=== PATIENT | male | born 1945 | race Caucasian/White ===

== ENCOUNTER 2018-02-26 13:54 | Inpatient (IN) | payer OTHER | END 2018-03-01 14:13 | disposition home or self-care (01) | LOC: EDH 13:54 → EDHIP 18:45 → 4CH 21:21 | DX: I50.43 Acute on chronic combined systolic (congestive) and diastolic (congestive) heart failure (principal); E11.9 Type 2 diabetes mellitus without complications; I11.0 Hypertensive heart disease with heart failure; E78.5 Hyperlipidemia, unspecified; I25.5 Ischemic cardiomyopathy; I25.10 Atherosclerotic heart disease of native coronary artery without angina pectoris ==

== ENCOUNTER → 2018-04-04 | Outpatient (CLI) | payer OTHER ==
[~2018-04-04] MED LIST: APIX5TAB PO; ASPI-1181 PO; CARV12.580 PO; FINA5TAB41 PO; FURO80TA87 PO; METF-446 PO; OMEP20CA10 PO; SILO8CAP6 PO; SIMV40TA59 PO
== END | disposition home or self-care (01) ==
LOC: SHCH 12:58
PROVIDERS: ATTEND Internal Medicine Cardiovascular Disease
DX: I34.0 Nonrheumatic mitral (valve) insufficiency (principal); I25.5 Ischemic cardiomyopathy; Z95.1 Presence of aortocoronary bypass graft
CPT/HCPCS: 93306

== ENCOUNTER 2018-11-28 11:50 | Inpatient (IN) | payer OTHER ==
[~2018-11-28] VITALS: Ht 182.9 cm; Wt 116.7 kg
[~2018-11-28 11:50] MED LIST changes: +OMEP-50 PO; -OMEP20CA10 PO
[2018-11-28 12:07] LABS: BASOPHILS % (AUTO) 0.7 % (0.0-5.0); HEMATOCRIT 43.7 % (42-54); LYMPHOCYTES % (AUTO) 4.9 % (21.0-51.0); MEAN CORPUSCULAR HEMOGLOBIN 35.7 pg (27.0-33.0); MEAN CORPUSCULAR HGB CONC 34.4 g/dL (32.0-36.0); MEAN CORPUSCULAR VOLUME 103.8 fL (79-99); MONOCYTES % (AUTO) 4.5 % (3.0-13.0); NEUTROPHILS % (AUTO) 87.9 % (40.0-77.0); PLATELET COUNT (AUTO) 282 K/uL (130-400); RED BLOOD CELL COUNT(AUTO) 4.21 MIL/uL (4.50-6.20); RED CELL DISTRIBUTION WIDTH 13.8 % (11.0-15.5); WHITE BLOOD COUNT (AUTO) 10.8 K/uL (4.8-10.8)
[2018-11-28 12:12] LABS: CREATININE 1.1 mg/dL (0.5-1.5); POTASSIUM 4.6 mmol/L (3.5-5.1)
[2018-11-28 12:15] LABS: ALBUMIN 3.5 g/dL (3.5-5.0); BILIRUBIN,TOTAL 1.2 mg/dL (0.2-1.0); TOTAL PROTEIN, SERUM 7.1 g/dL (6.0-8.3)
[2018-11-28 12:17] LABS: INR 1.01 (0.85-1.15); PARTIAL THROMBOPLASTIN TIME 26.9 SEC (26.3-35.5); PROTHROMBIN TIME 10.6 SEC (9.6-11.6)
[2018-11-28] MEDS ORDERED: METOPROLOL TARTRATE 1 MG/ML 5ML VIAL IV ONE ×3 (12:41→15:36)
[2018-11-28] MEDS ORDERED: INSULIN HUMULIN R 100 UNIT/ML 3ML ONE ×2 (12:41→18:54)
[2018-11-28 13:06] LABS: B-TYPE NATRIURETIC PEPTIDE 182 pg/mL (0-100)
[2018-11-28] MEDS ORDERED: IOHEXOL-350 75 ML VIAL IV ONE (14:15)
[2018-11-28] MEDS ORDERED: DILTIAZEM HCL 125 MG/25 ML VIAL IV ONE (16:16)
[2018-11-28] MEDS ORDERED: SODIUM CHLORIDE 0.9% 100 ML IV ONE (16:18)
[2018-11-28] MEDS ORDERED: DILTIAZEM HCL 5 MG/ML 5 ML VIAL IVP ONE (16:18)
[2018-11-28 20:01] VITALS: BP 139/67
[2018-11-28] MEDS: FAMOTIDINE/PF 20 MG/2 ML VIAL IV SCH (21:14)
[2018-11-28 23:34] VITALS: BP 114/63
[2018-11-29 03:16] VITALS: BP 145/75
[2018-11-29 03:53] LABS: BASOPHILS % (AUTO) 1.5 % (0.0-5.0); EOSINOPHILS % (AUTO) 1.5 % (0.0-8.0); HEMATOCRIT 39.1 % (42-54); LYMPHOCYTES % (AUTO) 10.5 % (21.0-51.0); MEAN CORPUSCULAR HEMOGLOBIN 35.4 pg (27.0-33.0); MEAN CORPUSCULAR HGB CONC 34.6 g/dL (32.0-36.0); MEAN CORPUSCULAR VOLUME 102.5 fL (79-99); MONOCYTES % (AUTO) 8.8 % (3.0-13.0); NEUTROPHILS % (AUTO) 77.7 % (40.0-77.0); PLATELET COUNT (AUTO) 251 K/uL (130-400); RED BLOOD CELL COUNT(AUTO) 3.82 MIL/uL (4.50-6.20); RED CELL DISTRIBUTION WIDTH 13.6 % (11.0-15.5); WHITE BLOOD COUNT (AUTO) 7.2 K/uL (4.8-10.8)
[2018-11-29] MEDS: DILTIAZEM HCL 60 MG TABLET PO SCH ×2 (05:41→09:24)
[2018-11-29 07:25] VITALS: BP 124/60
[2018-11-29] MEDS ORDERED: FUROSEMIDE 80 MG TABLET PO SCH (09:00)
[2018-11-29] MEDS ORDERED: ENOXAPARIN SODIUM 30 MG/0.3 ML SQ SCH (09:00)
[2018-11-29] MEDS ORDERED: LEVOFLOXACIN 500 MG/D5W 100 ML 100 ML IV SCH (09:00)
[2018-11-29] MEDS: FAMOTIDINE/PF 20 MG/2 ML VIAL IV SCH ×2 (09:24→20:39)
[2018-11-29] MEDS: SILODOSIN 8 MG PO SCH (10:49)
[2018-11-29] MEDS: APIXABAN 5 MG TABLET PO SCH ×2 (11:02→20:40)
[2018-11-29] MEDS: FINASTERIDE 5 MG TABLET PO SCH (11:02)
[2018-11-29] MEDS: METFORMIN HCL 500 MG TABLET PO SCH ×2 (11:02→19:34)
[2018-11-29] MEDS: ASPIRIN 81 MG EC TAB PO SCH (11:03)
[2018-11-29] MEDS: LISINOPRIL 5 MG TABLET PO SCH (11:03)
[2018-11-29] MEDS: PANTOPRAZOLE SODIUM 40 MG TABLET.DR PO SCH (11:04)
[2018-11-29 11:10] VITALS: BP 128/67
[2018-11-29] MEDS ORDERED: METRONIDAZOLE 500MG/100ML BAG 100 ML IV SCH (14:00)
[2018-11-29 15:07] VITALS: BP 150/69
[2018-11-29] MEDS: METRONIDAZOLE 500 MG TABLET PO SCH ×2 (15:20→20:39)
[2018-11-29] MEDS: DILTIAZEM HCL 125 MG/25 ML 125 MG in SODIUM CHLORIDE 0.9% 100 ML IV SCH (16:54)
--- NOTE | 2018-11-29 17:21 | NUR ---
DC PLAN PATIENT STATES HE IS INDEPENDENT, LIVES ALONE, NO PROVIDER, HAS WALKER AND CPAP. PER PATIENT, FEELS SAFE TO RETURN HOME. Addendum: 11/29/18 at 1722 by MIRELLA REIS Amended: Links added.
[2018-11-29] MEDS: CARVEDILOL 12.5 MG TABLET PO SCH (19:33)
[2018-11-29 20:02] VITALS: BP 133/71
[2018-11-29] MEDS ORDERED: SIMVASTATIN 20 MG TABLET PO SCH (21:00)
[2018-11-30 00:14] VITALS: BP 114/66
[2018-11-30 04:20] VITALS: BP 124/69
[2018-11-30 05:32] LABS: HEMATOCRIT 39.2 % (42-54); MEAN CORPUSCULAR HEMOGLOBIN 35.4 pg (27.0-33.0); MEAN CORPUSCULAR HGB CONC 34.1 g/dL (32.0-36.0); MEAN CORPUSCULAR VOLUME 103.7 fL (79-99); PLATELET COUNT (AUTO) 236 K/uL (130-400); RED BLOOD CELL COUNT(AUTO) 3.78 MIL/uL (4.50-6.20); RED CELL DISTRIBUTION WIDTH 13.7 % (11.0-15.5); WHITE BLOOD COUNT (AUTO) 5.9 K/uL (4.8-10.8)
[2018-11-30 05:43] LABS: HEMOGLOBIN A1C 8.9 % (4.0-6.0)
[2018-11-30 05:47] LABS: CREATININE 1.1 mg/dL (0.5-1.5); MAGNESIUM 1.5 mg/dL (1.80-2.40); PHOSPHORUS 2.8 mg/dL (2.5-4.9); POTASSIUM 3.9 mmol/L (3.5-5.1)
[2018-11-30 05:55] LABS: B-TYPE NATRIURETIC PEPTIDE 215 pg/mL (0-100)
[2018-11-30] MEDS: METRONIDAZOLE 500 MG TABLET PO SCH (06:13)
[2018-11-30] MEDS: PANTOPRAZOLE SODIUM 40 MG TABLET.DR PO SCH (06:13)
[2018-11-30] MEDS ORDERED: MAGNESIUM 2GM PREMIX 50ML 50 ML IV ONE (06:45)
[2018-11-30] MEDS: DILTIAZEM HCL 125 MG/25 ML 125 MG in SODIUM CHLORIDE 0.9% 100 ML IV SCH (07:47)
[2018-11-30] MEDS: CARVEDILOL 12.5 MG TABLET PO SCH (07:49)
[2018-11-30] MEDS: FINASTERIDE 5 MG TABLET PO SCH (07:49)
[2018-11-30] MEDS: ASPIRIN 81 MG EC TAB PO SCH (07:49)
[2018-11-30] MEDS: METFORMIN HCL 500 MG TABLET PO SCH (07:49)
[2018-11-30] MEDS: APIXABAN 5 MG TABLET PO SCH (07:49)
[2018-11-30] MEDS: LISINOPRIL 5 MG TABLET PO SCH (07:49)
[2018-11-30] MEDS: SILODOSIN 8 MG PO SCH (07:51)
[2018-11-30] MEDS: FAMOTIDINE/PF 20 MG/2 ML VIAL IV SCH (07:52)
--- NOTE | 2018-11-30 08:00 | NUR ---
ASSESSMENT PT IS AAOX3 DENIES CP DENIES SOB DENIES NV NO COMPLAINTS RESTING IN BED. AM MEDS GIVEN. CALL LIGHT WITHIN REACH.
[2018-11-30 08:03] VITALS: BP 145/83
[2018-11-30] MEDS ORDERED: LEVOFLOXACIN 500 MG TABLET PO SCH (09:00)
[2018-11-30] MEDS ORDERED: FUROSEMIDE 40 MG TABLET PO SCH (09:00)
[2018-11-30 11:43] VITALS: BP_SYST 122; BP_SYST 130; BP_DIAS 55; BP_DIAS 66
--- NOTE | 2018-11-30 13:40 | NUR ---
DISCHARGE PT IS AAOX3 DENIES CP DENIES SOB DENIES NV. AGREE TO TAKE MEDS ORDERED, AGREES TO FOLLOW UP WITH DR MCCORMACK OUTPT. ALL QUESTIONS ANSWERED, PIV REMOVED CATH TIP INTACT. TELE PACK REMOVED.. DOWN VIA WC TO VEHICLE. REFUSED FLU SHOT.
== END 2018-11-30 13:30 | disposition home or self-care (01) | DRG 308 ==
LOC: EDH 11:50 → EDHIP 16:25 → 2DH 19:43
PROVIDERS: ADMIT Internal Medicine; ATTEND Internal Medicine
DX: I48.91 Unspecified atrial fibrillation (principal); I50.43 Acute on chronic combined systolic (congestive) and diastolic (congestive) heart failure; K52.9 Noninfective gastroenteritis and colitis, unspecified; E11.65 Type 2 diabetes mellitus with hyperglycemia; I11.0 Hypertensive heart disease with heart failure; E78.5 Hyperlipidemia, unspecified; K57.30 Diverticulosis of large intestine without perforation or abscess without bleeding; I25.5 Ischemic cardiomyopathy; K76.9 Liver disease, unspecified; I25.10 Atherosclerotic heart disease of native coronary artery without angina pectoris; Z90.81 Acquired absence of spleen; Z79.01 Long term (current) use of anticoagulants; Z79.84 Long term (current) use of oral hypoglycemic drugs; I25.2 Old myocardial infarction; Z79.899 Other long term (current) drug therapy; Z95.810 Presence of automatic (implantable) cardiac defibrillator; Z95.1 Presence of aortocoronary bypass graft; Z87.891 Personal history of nicotine dependence; Z88.8 Allergy status to other drugs, medicaments and biological substances; Z82.49 Family history of ischemic heart disease and other diseases of the circulatory system
CPT/HCPCS: 36415; 71045; 74177; 80048; 80053; 82550; 82948; 83036; 83690; 83735; 83880; 84100; 84484; 85025; 85027; 85610; 85730; 93005; 99291; G0378; J1650; J1815; J1956; J3475; J3490; Q9967

== ENCOUNTER 2019-03-27 02:36 | Emergency (ER) | payer OTHER ==
[~2019-03-27 02:36] MED LIST changes: -OMEP-50 PO; +OMEP20CA12 PO
[2019-03-27] MEDS ORDERED: FAMOTIDINE/PF 20 MG/2 ML VIAL IV ONE (02:56)
[2019-03-27] MEDS ORDERED: DiphenhydrAMINE HCL 50 MG/ML VIAL ONE (02:56)
[2019-03-27 03:07] LABS: POTASSIUM 3.6 mmol/L (3.5-5.1)
[2019-03-27 03:13] LABS: BASOPHILS % (AUTO) 0.5 % (0.0-5.0); HEMATOCRIT 39.3 % (42-54); LYMPHOCYTES % (AUTO) 38.5 % (21.0-51.0); MEAN CORPUSCULAR HEMOGLOBIN 33.7 pg (27.0-33.0); MEAN CORPUSCULAR HGB CONC 33.6 g/dL (32.0-36.0); MEAN CORPUSCULAR VOLUME 100.3 fL (79-99); MONOCYTES % (AUTO) 13.7 % (3.0-13.0); NEUTROPHILS % (AUTO) 43.2 % (40.0-77.0); PLATELET COUNT (AUTO) 271 K/uL (130-400); RED BLOOD CELL COUNT(AUTO) 3.92 MIL/uL (4.50-6.20); RED CELL DISTRIBUTION WIDTH 13.9 % (11.0-15.5); WHITE BLOOD COUNT (AUTO) 7.4 K/uL (4.8-10.8)
[2019-03-27 03:23] LABS: ALBUMIN 3.6 g/dL (3.5-5.0); BILIRUBIN,TOTAL 0.5 mg/dL (0.2-1.0); CREATININE 0.9 mg/dL (0.5-1.5); TOTAL PROTEIN, SERUM 6.7 g/dL (6.0-8.3)
[2019-03-27 03:24] LABS: B-TYPE NATRIURETIC PEPTIDE 248 pg/mL (0-100)
[2019-03-27] MEDS ORDERED: FUROSEMIDE 10 MG/ML 4ML VIAL ONE (04:19)
== END 2019-03-27 04:55 | disposition home or self-care (01) ==
LOC: EDH 02:36
DX: T78.40XA Allergy, unspecified, initial encounter (principal); I50.9 Heart failure, unspecified; E11.9 Type 2 diabetes mellitus without complications; I48.91 Unspecified atrial fibrillation; I10 Essential (primary) hypertension; Z91.041 Radiographic dye allergy status; Z91.013 Allergy to seafood; X58.XXXA Exposure to other specified factors, initial encounter
CPT/HCPCS: 36415; 71045; 80053; 82550; 83880; 84484; 85025; 93005; 96374; 96375; 99285; J1200; J1940; J3490

== ENCOUNTER 2020-02-23 11:10 | Inpatient (IN) | payer OTHER ==
[~2020-02-23] VITALS: Ht 182.9 cm; Wt 130.4 kg
[~2020-02-23 11:10] MED LIST changes: -ASPI-1181 PO; +ASPI-1443 PO
[2020-02-23] MEDS ORDERED: TETANUS/DIPHTHERIA TOXOID [ADULT] 0.5 ML VIAL IM ONE (11:40)
[2020-02-23 11:58] LABS: BASOPHILS % (AUTO) 0.8 % (0.0-5.0); EOSINOPHILS % (AUTO) 1.5 % (0.0-8.0); HEMATOCRIT 40.5 % (42-54); LYMPHOCYTES % (AUTO) 18.4 % (21.0-51.0); MEAN CORPUSCULAR HEMOGLOBIN 35.6 pg (27.0-33.0); MEAN CORPUSCULAR HGB CONC 34.6 g/dL (32.0-36.0); MEAN CORPUSCULAR VOLUME 103.1 fL (79-99); MONOCYTES % (AUTO) 15.5 % (3.0-13.0); NEUTROPHILS % (AUTO) 63.5 % (40.0-77.0); PLATELET COUNT (AUTO) 284 K/uL (130-400); RED BLOOD CELL COUNT(AUTO) 3.93 MIL/uL (4.50-6.20); WHITE BLOOD COUNT (AUTO) 9.1 K/uL (4.8-10.8)
[2020-02-23 12:10] LABS: INR 1.04 (0.85-1.15); PROTHROMBIN TIME 11.1 SEC (9.6-11.6)
[2020-02-23 12:12] LABS: PARTIAL THROMBOPLASTIN TIME 26.2 SEC (26.3-35.5)
[2020-02-23 12:17] LABS: ALBUMIN 3.3 g/dL (3.5-5.0); CREATININE 1.3 mg/dL (0.5-1.5); POTASSIUM 5.2 mmol/L (3.5-5.1); TOTAL PROTEIN, SERUM 7.1 g/dL (6.0-8.3)
[2020-02-23] MEDS ORDERED: ZOSYN 3.375GM+NS 50ML 50 ML IV ONE (12:36)
[2020-02-23 12:58] LABS: APPEARANCE,URINE Clear (CLEAR); BILIRUBIN,URINE Negative (NEGATIVE); COLOR,URINE Yellow (YELLOW); GLUCOSE, URINE (UA) >=1000 mg/dL (NEGATIVE); KETONES,URINE 15 mg/dL (NEGATIVE); LEUKOCYTE ESTERASE ,URINE Negative (NEGATIVE); NITRATE,URINE Negative (NEGATIVE); OCCULT BLOOD,URINE Negative (NEGATIVE); PROTEIN,URINE Negative (NEGATIVE)
[2020-02-23 13:14] LABS: BACTERIA,URINE None Seen /HPF (None Seen); RBC,URINE 0-1 /HPF (0-1); WBC,URINE 0-1 /HPF (0-1)
[2020-02-23] MEDS ORDERED: MORPHINE 2 MG SYG IV PRN (14:30)
[2020-02-23] MEDS ORDERED: 0.9%NACL 1000ML 1,000 ML IV SCH (14:30)
[2020-02-23] MEDS ORDERED: ONDANSETRON 4MG INJ IV PRN (14:30)
[2020-02-23] MEDS ORDERED: ACETAMINOPHEN 325 MG TAB PO PRN ×2 (14:30)
[2020-02-23 14:59] LABS: ALBUMIN 3.3 g/dL (3.5-5.0); BILIRUBIN,TOTAL 0.6 mg/dL (0.2-1.0); CREATININE 1.4 mg/dL (0.5-1.5); POTASSIUM 5.2 mmol/L (3.5-5.1); TOTAL PROTEIN, SERUM 7.3 g/dL (6.0-8.3)
[2020-02-23] MEDS: INSULIN HUMULIN R 100 UNIT/ML 3ML SQ SCH ×2 (16:30→21:00)
[2020-02-23] MEDS ORDERED: CARVEDILOL 12.5 MG TABLET PO ONE (16:37)
[2020-02-23] MEDS: CARVEDILOL 12.5 MG TABLET PO SCH (17:00)
[2020-02-23] MEDS ORDERED: INSULIN LISPRO 100 UNIT/ML 3ML SQ SCH (17:00)
[2020-02-23] MEDS ORDERED: INSULIN HUMULIN R 100 UNIT/ML 3ML ONE (17:05)
[2020-02-23] MEDS ORDERED: VANCOMYCIN PROTOCOL PER PHARMACY IV PRN (18:45)
[2020-02-23] MEDS ORDERED: COMPOUND IV REFRIGERATED 1 EACH IVSOLN MISC PRN (19:00)
[2020-02-23] MEDS ORDERED: VANCOMYCIN 1G 1.75 GM in 0.9% NACL 250ML 250 ML IV ONE (19:00)
[2020-02-23 20:05] VITALS: BP 127/58
[2020-02-23] MEDS ORDERED: NON-FORMULARY MEDICATION 1 EACH (Simvastatin (Zocor) 80 MG) PO SCH (21:00)
[2020-02-23] MEDS: ZOSYN 3.375GM+NS 50ML 50 ML IV SCH (21:00)
[2020-02-23] MEDS: ATORVASTATIN 40 MG TABLET PO SCH (22:14)
[2020-02-23] MEDS: APIXABAN 5 MG TABLET PO SCH (22:14)
[2020-02-23] MEDS: INSULIN GLARGINE 100 UNITS/ML 10 ML VIAL SQ SCH (22:17)
[2020-02-24] VITALS (7 sets, daily range): BP systolic 128–143; BP diastolic 62–80
[2020-02-24] MEDS: VANCOMYCIN 1G/250ML KIT 250 ML IV SCH ×2 (04:11→18:00)
[2020-02-24 04:46] LABS: BASOPHILS % (AUTO) 1.1 % (0.0-5.0); EOSINOPHILS % (AUTO) 2.6 % (0.0-8.0); HEMATOCRIT 37.5 % (42-54); LYMPHOCYTES % (AUTO) 28.1 % (21.0-51.0); MEAN CORPUSCULAR HGB CONC 34.4 g/dL (32.0-36.0); MEAN CORPUSCULAR VOLUME 101.6 fL (79-99); MONOCYTES % (AUTO) 15.4 % (3.0-13.0); NEUTROPHILS % (AUTO) 52.6 % (40.0-77.0); PLATELET COUNT (AUTO) 294 K/uL (130-400); RED BLOOD CELL COUNT(AUTO) 3.69 MIL/uL (4.50-6.20); RED CELL DISTRIBUTION WIDTH 12.7 % (11.0-15.5); WHITE BLOOD COUNT (AUTO) 8.1 K/uL (4.8-10.8)
[2020-02-24] MEDS: ZOSYN 3.375GM+NS 50ML 50 ML IV SCH ×3 (06:08→20:42)
[2020-02-24] MEDS: INSULIN HUMULIN R 100 UNIT/ML 3ML SQ SCH ×4 (07:32→20:37)
[2020-02-24 08:42] LABS: ALBUMIN 3.1 g/dL (3.5-5.0); BILIRUBIN,TOTAL 0.9 mg/dL (0.2-1.0); CREATININE 1.1 mg/dL (0.5-1.5); MAGNESIUM 1.7 mg/dL (1.80-2.40); POTASSIUM 4.1 mmol/L (3.5-5.1); TOTAL PROTEIN, SERUM 6.6 g/dL (6.0-8.3)
[2020-02-24] MEDS: APIXABAN 5 MG TABLET PO SCH ×2 (08:48→20:42)
[2020-02-24] MEDS: FINASTERIDE 5 MG TABLET PO SCH (08:48)
[2020-02-24] MEDS: CARVEDILOL 12.5 MG TABLET PO SCH ×2 (08:49→17:04)
[2020-02-24 08:50] LABS: LYMPHOCYTES % (MANUAL) 27 % (22-44); MAN.DIFF COMMENT-IMPRESSION MANUAL DIFFERENTIAL; MONOCYTES % (MANUAL) 16 % (2-9); SEGMENTED NEUTROPHILS % 57 % (40-70)
[2020-02-24 08:51] LABS: PLATELET MORPHOLOGY COMMENT ADEQUATE
[2020-02-24] MEDS: FUROSEMIDE 80 MG TABLET PO SCH (08:52)
[2020-02-24] MEDS: INSULIN LISPRO 100 UNIT/ML 3ML SQ SCH ×3 (08:54→17:05)
[2020-02-24] MEDS: ASPIRIN 81 MG EC TAB PO SCH (08:57)
[2020-02-24] MEDS: 0.9%NACL 1000ML 1,000 ML IV SCH ×2 (12:51→20:51)
[2020-02-24] MEDS: ATORVASTATIN 40 MG TABLET PO SCH (20:42)
[2020-02-24] MEDS: INSULIN GLARGINE 100 UNITS/ML 10 ML VIAL SQ SCH (20:51)
[2020-02-25 04:00] VITALS: BP 125/63
[2020-02-25] MEDS: VANCOMYCIN 1G/250ML KIT 250 ML IV SCH ×3 (05:14→22:12)
[2020-02-25] MEDS: ZOSYN 3.375GM+NS 50ML 50 ML IV SCH ×3 (05:17→22:05)
[2020-02-25] MEDS: INSULIN HUMULIN R 100 UNIT/ML 3ML SQ SCH ×4 (06:00→22:07)
[2020-02-25 06:16] LABS: BASOPHILS % (AUTO) 0.7 % (0.0-5.0); EOSINOPHILS % (AUTO) 2.8 % (0.0-8.0); HEMATOCRIT 38.4 % (42-54); MEAN CORPUSCULAR HEMOGLOBIN 33.9 pg (27.0-33.0); MEAN CORPUSCULAR HGB CONC 33.6 g/dL (32.0-36.0); MEAN CORPUSCULAR VOLUME 100.8 fL (79-99); MONOCYTES % (AUTO) 13.7 % (3.0-13.0); NEUTROPHILS % (AUTO) 58.6 % (40.0-77.0); PLATELET COUNT (AUTO) 294 K/uL (130-400); RED BLOOD CELL COUNT(AUTO) 3.81 MIL/uL (4.50-6.20); RED CELL DISTRIBUTION WIDTH 12.7 % (11.0-15.5)
[2020-02-25 06:35] LABS: CREATININE 1.1 mg/dL (0.5-1.5); MAGNESIUM 1.7 mg/dL (1.80-2.40); POTASSIUM 3.8 mmol/L (3.5-5.1); TOTAL PROTEIN, SERUM 6.6 g/dL (6.0-8.3)
[2020-02-25 08:20] VITALS: BP 160/76
[2020-02-25] MEDS ORDERED: MAGNESIUM 2GM PREMIX 50ML 50 ML IV SCH (09:00)
[2020-02-25] MEDS: FUROSEMIDE 80 MG TABLET PO SCH (09:58)
[2020-02-25] MEDS: ASPIRIN 81 MG EC TAB PO SCH (09:58)
[2020-02-25] MEDS: APIXABAN 5 MG TABLET PO SCH ×2 (09:59→22:06)
[2020-02-25] MEDS: FINASTERIDE 5 MG TABLET PO SCH (09:59)
[2020-02-25] MEDS: CARVEDILOL 12.5 MG TABLET PO SCH ×2 (09:59→17:00)
[2020-02-25] MEDS: INSULIN LISPRO 100 UNIT/ML 3ML SQ SCH ×3 (10:04→18:21)
[2020-02-25 12:34] VITALS: BP 120/59
[2020-02-25 19:17] VITALS: BP 148/84
[2020-02-25 20:00] VITALS: BP 145/83
[2020-02-25] MEDS: ATORVASTATIN 40 MG TABLET PO SCH (22:05)
[2020-02-25] MEDS: INSULIN GLARGINE 100 UNITS/ML 10 ML VIAL SQ SCH (22:09)
[2020-02-26] VITALS: BP 163/86
[2020-02-26 04:00] VITALS: BP 152/89
[2020-02-26 04:49] LABS: HEMATOCRIT 39.2 % (42-54); MEAN CORPUSCULAR HEMOGLOBIN 34.5 pg (27.0-33.0); MEAN CORPUSCULAR HGB CONC 34.2 g/dL (32.0-36.0); PLATELET COUNT (AUTO) 294 K/uL (130-400); RED BLOOD CELL COUNT(AUTO) 3.88 MIL/uL (4.50-6.20); RED CELL DISTRIBUTION WIDTH 12.3 % (11.0-15.5); WHITE BLOOD COUNT (AUTO) 11.1 K/uL (4.8-10.8)
[2020-02-26] MEDS: ZOSYN 3.375GM+NS 50ML 50 ML IV SCH ×2 (04:54→13:07)
[2020-02-26 05:08] LABS: ALBUMIN 3.1 g/dL (3.5-5.0); BILIRUBIN,TOTAL 0.9 mg/dL (0.2-1.0); CREATININE 0.9 mg/dL (0.5-1.5); MAGNESIUM 1.8 mg/dL (1.80-2.40); POTASSIUM 3.9 mmol/L (3.5-5.1); TOTAL PROTEIN, SERUM 6.8 g/dL (6.0-8.3)
[2020-02-26] MEDS: INSULIN HUMULIN R 100 UNIT/ML 3ML SQ SCH ×3 (05:48→17:58)
[2020-02-26] MEDS: VANCOMYCIN 1G/250ML KIT 250 ML IV SCH ×2 (05:49→14:00)
[2020-02-26 06:12] LABS: BASOPHILS % (MANUAL) 1 % (0-2); EOSINOPHILS % (MANUAL) 2 % (1-6); LYMPHOCYTES % (MANUAL) 18 % (22-44); MAN.DIFF COMMENT-IMPRESSION MANUAL DIFFERENTIAL; MONOCYTES % (MANUAL) 10 % (2-9); SEGMENTED NEUTROPHILS % 69 % (40-70)
[2020-02-26 06:13] LABS: PLATELET MORPHOLOGY COMMENT ADEQUATE
[2020-02-26 08:00] VITALS: BP 152/89
[2020-02-26] MEDS: INSULIN LISPRO 100 UNIT/ML 3ML SQ SCH ×3 (08:00→17:57)
[2020-02-26] MEDS: APIXABAN 5 MG TABLET PO SCH (09:05)
[2020-02-26] MEDS: ASPIRIN 81 MG EC TAB PO SCH (09:05)
[2020-02-26] MEDS: FINASTERIDE 5 MG TABLET PO SCH (09:05)
[2020-02-26] MEDS: FUROSEMIDE 80 MG TABLET PO SCH (09:05)
[2020-02-26] MEDS: CARVEDILOL 12.5 MG TABLET PO SCH ×2 (09:06→17:55)
[2020-02-26 11:00] VITALS: BP 121/63
[2020-02-26 16:00] VITALS: BP 126/56
[2020-02-26] MEDS ORDERED: CEFU500T67 PO (16:42)
[2020-02-26 17:55] VITALS: BP 155/65
[2020-09-03] MEDS ORDERED: OMEP20CA12 PO (01:39)
[2020-09-03] MEDS ORDERED: INSU100C14 SQ (06:30)
[2020-09-03] MEDS ORDERED: INSLAN SQ (06:30)
[2020-09-03] MEDS ORDERED: SACU1TAB7 PO (15:48)
== END 2020-02-26 19:30 | disposition home or self-care (01) | DRG 603 ==
LOC: EDH 11:10 → EDHIP 14:21 → 3CH 19:29
PROVIDERS: ADMIT Internal Medicine; ATTEND Internal Medicine
PROC: 3E0234Z Introduction of Serum, Toxoid and Vaccine into Muscle, Percutaneous Approach (ICD-10-PCS; principal; 2020-02-23)
DX: L03.116 Cellulitis of left lower limb (principal); I50.42 Chronic combined systolic (congestive) and diastolic (congestive) heart failure; N17.9 Acute kidney failure, unspecified; L97.929 Non-pressure chronic ulcer of unspecified part of left lower leg with unspecified severity; E11.65 Type 2 diabetes mellitus with hyperglycemia; I11.0 Hypertensive heart disease with heart failure; I25.10 Atherosclerotic heart disease of native coronary artery without angina pectoris; I25.5 Ischemic cardiomyopathy; E83.42 Hypomagnesemia; E87.5 Hyperkalemia; S80.12XA Contusion of left lower leg, initial encounter; E66.01 Morbid (severe) obesity due to excess calories; S80.812A Abrasion, left lower leg, initial encounter; X58.XXXA Exposure to other specified factors, initial encounter; I48.91 Unspecified atrial fibrillation; Z79.01 Long term (current) use of anticoagulants; Z95.1 Presence of aortocoronary bypass graft; Z90.81 Acquired absence of spleen; Z83.3 Family history of diabetes mellitus; I25.2 Old myocardial infarction; Z23 Encounter for immunization; Z68.39 Body mass index [BMI] 39.0-39.9, adult; Z79.899 Other long term (current) drug therapy; Z79.82 Long term (current) use of aspirin; Z79.84 Long term (current) use of oral hypoglycemic drugs; Z91.041 Radiographic dye allergy status; Z91.013 Allergy to seafood; Y93.89 Activity, other specified; Y92.89 Other specified places as the place of occurrence of the external cause; Y99.8 Other external cause status
CPT/HCPCS: 36415; 73590; 80053; 80202; 81001; 82948; 83735; 84145; 85025; 85610; 85730; 87040; 87070; 87076; 87077; 87186; 90714; 92610; 93970; G0378; J1815; J2543; J3370; J3475; J7050

== ENCOUNTER 2020-05-19 10:18 | Observation (INO) | payer OTHER ==
[~2020-05-19] VITALS: Ht 182.9 cm; Wt 127.6 kg
[~2020-05-19 10:18] MED LIST changes: +CEFU500T67 PO
[2020-05-19] MEDS ORDERED: LIDOCAINE 5% TOPICAL PATCH TP ONE (12:23)
[2020-05-19 12:38] LABS: BASOPHILS % (AUTO) 0.9 % (0.0-5.0); EOSINOPHILS % (AUTO) 2.5 % (0.0-8.0); HEMATOCRIT 42.2 % (42-54); LYMPHOCYTES % (AUTO) 18.5 % (21.0-51.0); MEAN CORPUSCULAR HEMOGLOBIN 34.9 pg (27.0-33.0); MEAN CORPUSCULAR HGB CONC 33.9 g/dL (32.0-36.0); MEAN CORPUSCULAR VOLUME 102.9 fL (79-99); MONOCYTES % (AUTO) 11.9 % (3.0-13.0); NEUTROPHILS % (AUTO) 65.9 % (40.0-77.0); PLATELET COUNT (AUTO) 316 K/uL (130-400); RED CELL DISTRIBUTION WIDTH 14.3 % (11.0-15.5); WHITE BLOOD COUNT (AUTO) 8.8 K/uL (4.8-10.8)
[2020-05-19 12:52] LABS: CREATININE 1.4 mg/dL (0.5-1.5); POTASSIUM 4.4 mmol/L (3.5-5.1)
[2020-05-19 12:56] LABS: ALBUMIN 3.6 g/dL (3.5-5.0); BILIRUBIN,TOTAL 0.7 mg/dL (0.2-1.0); TOTAL PROTEIN, SERUM 7.1 g/dL (6.0-8.3)
[2020-05-19 13:44] LABS: ERYTHROCYTE SEDIMENTATION RATE 8 MM/HR (0-20)
[2020-05-19] MEDS ORDERED: DEXTROSE 50%-WATER 50 ML DISP.SYRIN IV PRN (14:45)
[2020-05-19] MEDS ORDERED: MORPHINE SULFATE 2 MG/ML 1ML SYG IVP PRN ×2 (14:45→19:45)
[2020-05-19] MEDS ORDERED: GLUCAGON 1MG KIT 1 MG ML IM PRN (14:45)
[2020-05-19] MEDS ORDERED: ACETAMINOPHEN 325 MG TAB PO PRN (14:45)
[2020-05-19] MEDS ORDERED: PHARMACY COMMUNICATION MISC PRN (15:00)
[2020-05-19] MEDS ORDERED: THIAMINE HCL 100 MG, FOLIC ACID 1 MG, M.V.I. IV [ADULT] 10 ML in SODIUM CHLORIDE 0.9% 1... IV SCH (15:00)
[2020-05-19] MEDS ORDERED: ONDANSETRON HCL 4 MG/2 ML VIAL IV PRN (15:00)
[2020-05-19] MEDS ORDERED: LORAZEPAM 2 MG/ML 1 ML VIAL IVP PRN (15:00)
[2020-05-19] MEDS ORDERED: CHLORDIAZEPOXIDE HCL 25 MG CAP PO PRN ×2 (15:00→19:45)
[2020-05-19] MEDS: INSULIN HUMULIN R 100 UNIT/ML 3ML SQ SCH ×2 (16:30→19:57)
[2020-05-19 17:01] VITALS: BP 140/70
[2020-05-19 17:09] LABS: HEMOGLOBIN A1C 7.8 % (4.0-6.0)
[2020-05-19 17:17] LABS: AMPHET/METH SCREEN,URINE NEGATIVE (NEGATIVE); BARBITURATE SCREEN, URINE NEGATIVE (NEGATIVE); BENZODIAZEPINES SCREEN,URINE NEGATIVE (NEGATIVE); CANNABINOID SCREEN,URINE NEGATIVE (NEGATIVE); COCAINE SCREEN,URINE NEGATIVE (NEGATIVE); OPIATE SCREEN,URINE NEGATIVE (NEGATIVE); PHENCYCLIDINE SCREEN,URINE NEGATIVE (NEGATIVE)
[2020-05-19] MEDS ORDERED: KETOROLAC TROMETHAMINE 30MG/ML IM PRN (18:30)
[2020-05-19 19:25] VITALS: BP 144/79
[2020-05-19] MEDS ORDERED: FAMOTIDINE 20MG TAB 20 MG TAB PO SCH (21:00)
[2020-05-19] MEDS: CARVEDILOL 12.5 MG TABLET PO SCH (21:00)
[2020-05-20 00:14] VITALS: BP 140/73
[2020-05-20] MEDS ORDERED: KETOROLAC TROMETHAMINE 30MG/ML IV PRN (00:30)
[2020-05-20 04:00] VITALS: BP 122/75
[2020-05-20 05:21] LABS: BASOPHILS % (AUTO) 0.9 % (0.0-5.0); EOSINOPHILS % (AUTO) 4.3 % (0.0-8.0); HEMATOCRIT 40.9 % (42-54); LYMPHOCYTES % (AUTO) 29.1 % (21.0-51.0); MEAN CORPUSCULAR HEMOGLOBIN 33.7 pg (27.0-33.0); MONOCYTES % (AUTO) 12.2 % (3.0-13.0); NEUTROPHILS % (AUTO) 53.3 % (40.0-77.0); PLATELET COUNT (AUTO) 317 K/uL (130-400); RED BLOOD CELL COUNT(AUTO) 4.01 MIL/uL (4.50-6.20); RED CELL DISTRIBUTION WIDTH 14.1 % (11.0-15.5); WHITE BLOOD COUNT (AUTO) 8.6 K/uL (4.8-10.8)
[2020-05-20 05:41] LABS: ALBUMIN 3.3 g/dL (3.5-5.0); BILIRUBIN,TOTAL 0.8 mg/dL (0.2-1.0); CREATININE 1.2 mg/dL (0.5-1.5); POTASSIUM 4.4 mmol/L (3.5-5.1); TOTAL PROTEIN, SERUM 6.5 g/dL (6.0-8.3)
[2020-05-20] MEDS: INSULIN HUMULIN R 100 UNIT/ML 3ML SQ SCH ×3 (06:08→17:18)
[2020-05-20 08:02] VITALS: BP 123/72
[2020-05-20] MEDS: CARVEDILOL 12.5 MG TABLET PO SCH (08:59)
[2020-05-20] MEDS ORDERED: THIAMINE HCL 100 MG/ML 2ML VIAL IV SCH (09:00)
[2020-05-20] MEDS ORDERED: FOLIC ACID 1 MG TABLET PO SCH (09:00)
[2020-05-20] MEDS ORDERED: ENOXAPARIN SODIUM 30 MG/0.3 ML SQ SCH (09:00)
[2020-05-20] MEDS ORDERED: MULTIVITAMIN TABLET PO SCH (09:00)
[2020-05-20 12:00] VITALS: BP 138/71
[2020-05-20] MEDS ORDERED: SACU1TAB4 PO (12:50)
[2020-05-20] MEDS ORDERED: SIMV80TA91 PO (12:50)
[2020-05-20] MEDS ORDERED: CARV12.580 PO (12:50)
[2020-05-20] MEDS ORDERED: APIX5TAB PO (12:50)
[2020-05-20] MEDS ORDERED: LORA10TA7 PO (12:50)
[2020-05-20] MEDS ORDERED: FINA5TAB41 PO (12:50)
[2020-05-20] MEDS ORDERED: FURO80TA87 PO (12:50)
[2020-05-20] MEDS ORDERED: METF500S7 PO (12:50)
[2020-05-20] MEDS ORDERED: EMPA25TA PO (12:50)
[2020-05-20] MEDS ORDERED: SPIR25TA PO (12:50)
[2020-05-20] MEDS ORDERED: METF-444 PO (13:04)
[2020-05-20] MEDS ORDERED: LIDOCAINE 5% TOPICAL PATCH TP ONE (15:40)
[2020-05-20] MEDS ORDERED: LIDOCAINE 5% TOPICAL PATCH TP SCH (16:00)
[2020-05-20 17:16] VITALS: BP 129/68
== END 2020-05-20 18:55 | disposition home or self-care (01) ==
LOC: EDH 10:18 → INTOOBSV 14:35 → EDHIP 14:35 → 3AH 16:38
PROVIDERS: ADMIT Internal Medicine; ATTEND Internal Medicine
DX: M48.061 Spinal stenosis, lumbar region without neurogenic claudication (principal); M51.26 Other intervertebral disc displacement, lumbar region; I11.0 Hypertensive heart disease with heart failure; I50.9 Heart failure, unspecified; E11.65 Type 2 diabetes mellitus with hyperglycemia; F10.20 Alcohol dependence, uncomplicated; I48.91 Unspecified atrial fibrillation; E11.42 Type 2 diabetes mellitus with diabetic polyneuropathy; Z87.891 Personal history of nicotine dependence; Z95.1 Presence of aortocoronary bypass graft; Z90.81 Acquired absence of spleen; Z90.411 Acquired partial absence of pancreas; Z79.84 Long term (current) use of oral hypoglycemic drugs; Z79.01 Long term (current) use of anticoagulants; Z79.899 Other long term (current) drug therapy; Z91.013 Allergy to seafood; Z91.041 Radiographic dye allergy status
CPT/HCPCS: 36415 ×2; 72148; 80053 ×2; 80305; 82948 ×5; 83036; 85025 ×2; 85651; 96372; 96374; 99284; G0378 ×28; J3411 ×2; J3490; J7030

== ENCOUNTER 2021-03-22 05:55 | Day surgery (SDC) | payer OTHER ==
[2021-03-16 12:34] LABS: BASOPHILS % (AUTO) 1.1 % (0.0-5.0); EOSINOPHILS % (AUTO) 4.4 % (0.0-8.0); HEMATOCRIT 45.2 % (42-54); LYMPHOCYTES % (AUTO) 27.6 % (21.0-51.0); MEAN CORPUSCULAR HEMOGLOBIN 34.5 pg (27.0-33.0); MEAN CORPUSCULAR HGB CONC 33.2 g/dL (32.0-36.0); MEAN CORPUSCULAR VOLUME 103.9 fL (79-99); MONOCYTES % (AUTO) 10.2 % (3.0-13.0); NEUTROPHILS % (AUTO) 56.6 % (40.0-77.0); PLATELET COUNT (AUTO) 313 K/uL (130-400); RED BLOOD CELL COUNT(AUTO) 4.35 MIL/uL (4.50-6.20); WHITE BLOOD COUNT (AUTO) 7.3 K/uL (4.8-10.8)
[2021-03-16 12:37] LABS: APPEARANCE,URINE Clear (CLEAR); BILIRUBIN,URINE Negative (NEGATIVE); COLOR,URINE Yellow (YELLOW); GLUCOSE, URINE (UA) >=1000 mg/dL (NEGATIVE); KETONES,URINE Trace mg/dL (NEGATIVE); LEUKOCYTE ESTERASE ,URINE Negative (NEGATIVE); NITRATE,URINE Negative (NEGATIVE); OCCULT BLOOD,URINE Negative (NEGATIVE); PH,URINE 5.5 (5.0-8.0); PROTEIN,URINE Negative (NEGATIVE)
[2021-03-16 12:39] LABS: CREATININE 1.2 mg/dL (0.5-1.5); POTASSIUM 5.1 mmol/L (3.5-5.1)
[2021-03-16 12:42] LABS: INR 1.06 (0.85-1.15); PROTHROMBIN TIME 11.5 SEC (9.6-11.6)
[2021-03-16 13:21] LABS: BACTERIA,URINE Rare /HPF (None Seen); RBC,URINE None Seen /HPF (0-1); SQUAMOUS EPITHELIAL CELL,UR Rare /HPF (0-2); WBC,URINE None Seen /HPF (0-1)
[2021-03-21 09:12] VITALS: BP 107/60
[2021-03-22] VITALS (12 sets, daily range): BP systolic 115–156; BP diastolic 68–81
[~2021-03-22] VITALS: Ht 182.9 cm; Wt 123.6 kg
[~2021-03-22 05:55] MED LIST changes: -ASPI-1443 PO; +CARV12.511 PO; -CARV12.580 PO; -CEFU500T67 PO; +EMPA25TA PO; +INSLAN SQ; +INSU3INS5 SQ; +ISOS30TA92 PO; +METF-444 PO; -METF-446 PO; +PRED20TA3 PO; -SIMV40TA59 PO; +SIMV80TA91 PO
[2021-03-22] MEDS ORDERED: DiphenhydrAMINE HCL 50 MG/ML VIAL ONE (07:07)
[2021-03-22] MEDS ORDERED: LIDOCAINE HCL 400MG/20ML VIAL ONE (07:08)
[2021-03-22] MEDS ORDERED: SOLU-MEDROL 125MG VIAL ONE (07:08)
[2021-03-22] MEDS ORDERED: NITROGLYCERIN 50MG VIAL ONE (07:08)
[2021-03-22] MEDS ORDERED: IOHEXOL-350 50ML VIAL IV ONE (07:08)
[2021-03-22] MEDS ORDERED: IOHEXOL 350 MG/ML 100ML INFUS..BTL IV ONE ×2 (07:08→07:48)
[2021-03-22] MEDS ORDERED: 0.9%NACL 1000ML 1,000 ML IV ONE (07:24)
[2021-03-22] MEDS ORDERED: FENTANYL CITRATE PF 50 MCG/1 ML 2ML VIAL ONE (07:37)
[2021-03-22] MEDS ORDERED: MIDAZOLAM HCL 1 MG/ML 2ML VIAL ONE (07:37)
[2021-03-22] MEDS ORDERED: HYDRALAZINE 20MG/ML VIAL IV PRN (08:30)
[2021-03-22] MEDS ORDERED: NITROGLYCERIN 0.4 MG SL TAB SL PRN (08:30)
[2021-03-22] MEDS ORDERED: METOPROLOL TARTRATE 1 MG/ML 5ML VIAL IV PRN (08:30)
[2021-03-22] MEDS ORDERED: 0.9%NACL 1000ML 1,000 ML IV SCH (08:30)
[2021-03-22] MEDS ORDERED: GLUCAGON 1MG KIT 1 MG ML IM PRN (08:30)
[2021-03-22] MEDS ORDERED: DEXTROSE 50%-WATER 50 ML DISP.SYRIN IV PRN (08:30)
[2021-03-22] MEDS ORDERED: INSULIN HUMULIN R 100 UNIT/ML 3ML ONE (09:07)
[2021-03-22] MEDS ORDERED: INSULIN HUMULIN R 100 UNIT/ML 3ML SQ SCH (11:30)
== END 2021-03-22 14:38 | disposition home or self-care (01) ==
LOC: DAH 05:55
PROVIDERS: ATTEND Internal Medicine Cardiovascular Disease
DX: I25.119 Atherosclerotic heart disease of native coronary artery with unspecified angina pectoris (principal); I11.0 Hypertensive heart disease with heart failure; I50.42 Chronic combined systolic (congestive) and diastolic (congestive) heart failure; I25.5 Ischemic cardiomyopathy; I48.20 Chronic atrial fibrillation, unspecified; E66.9 Obesity, unspecified; E11.9 Type 2 diabetes mellitus without complications; I25.2 Old myocardial infarction; Z79.4 Long term (current) use of insulin; Z79.82 Long term (current) use of aspirin; Z79.01 Long term (current) use of anticoagulants; Z79.899 Other long term (current) drug therapy; Z98.890 Other specified postprocedural states; Z95.1 Presence of aortocoronary bypass graft; Z82.49 Family history of ischemic heart disease and other diseases of the circulatory system; Z87.891 Personal history of nicotine dependence; Z72.89 Other problems related to lifestyle; Z88.3 Allergy status to other anti-infective agents; Z68.35 Body mass index [BMI] 35.0-35.9, adult; Z95.810 Presence of automatic (implantable) cardiac defibrillator
CPT/HCPCS: 36415; 71045; 80048; 81001; 82948 ×2; 85025; 85610; 85730; 93005; 93459; A4215; A4216; A4221; A4222; A4223 ×3; A4606; A4663; C1769; C1894 ×3; J1200; J1644; J1815; J2250; J2930; J3010; J3490 ×2; J7030; Q9965 ×2; Q9967 ×3; 99156; 99157

== ENCOUNTER 2021-05-03 13:05 | Emergency (ER) | payer MEDICARE, OTHER ==
[~2021-05-03] VITALS: Ht 182.9 cm; Wt 117.9 kg
[~2021-05-03 13:05] MED LIST changes: -PRED20TA3 PO
[2021-05-03 13:40] LABS: MEAN CORPUSCULAR HEMOGLOBIN 34.5 pg (27.0-33.0); MEAN CORPUSCULAR HGB CONC 33.5 g/dL (32.0-36.0); MEAN CORPUSCULAR VOLUME 103.2 fL (79-99); PLATELET COUNT (AUTO) 290 K/uL (130-400); RED BLOOD CELL COUNT(AUTO) 4.75 MIL/uL (4.50-6.20); RED CELL DISTRIBUTION WIDTH 13.6 % (11.0-15.5); WHITE BLOOD COUNT (AUTO) 6.3 K/uL (4.8-10.8)
[2021-05-03 13:46] LABS: APPEARANCE,URINE Clear (CLEAR); BILIRUBIN,URINE Negative (NEGATIVE); COLOR,URINE Yellow (YELLOW); GLUCOSE, URINE (UA) >=1000 mg/dL (NEGATIVE); KETONES,URINE 15 mg/dL (NEGATIVE); LEUKOCYTE ESTERASE ,URINE Negative (NEGATIVE); NITRATE,URINE Negative (NEGATIVE); OCCULT BLOOD,URINE Negative (NEGATIVE); PROTEIN,URINE Negative (NEGATIVE); UROBILINOGEN,URINE 0.2 mg/dL (0.2-1.0)
[2021-05-03 14:06] LABS: ALBUMIN 3.9 g/dL (3.5-5.0); BILIRUBIN,TOTAL 1.2 mg/dL (0.2-1.0); CREATININE 1.2 mg/dL (0.5-1.5); POTASSIUM 4.5 mmol/L (3.5-5.1); TOTAL PROTEIN, SERUM 7.7 g/dL (6.0-8.3)
[2021-05-03 14:10] LABS: B-TYPE NATRIURETIC PEPTIDE 126 pg/mL (0-100)
[2021-05-03 14:27] LABS: EOSINOPHILS % (MANUAL) 10 % (1-6); LYMPHOCYTES % (MANUAL) 22 % (22-44); MONOCYTES % (MANUAL) 17 % (2-9); REACTIVE LYMPHOCYTES 2 % (0-0); SEGMENTED NEUTROPHILS % 49 % (40-70)
[2021-05-03 14:28] LABS: MAN.DIFF COMMENT-IMPRESSION MANUAL DIFFERENTIAL; PLATELET MORPHOLOGY COMMENT ADEQUATE
[2021-05-03 14:32] LABS: BACTERIA,URINE Few /HPF (None Seen); RBC,URINE 0-1 /HPF (0-1); SQUAMOUS EPITHELIAL CELL,UR Few /HPF (0-2)
[2021-05-03 14:47] VITALS: BP 112/83
[2021-05-03] MEDS ORDERED: FUROSEMIDE 40MG VIAL ONE (14:52)
[2021-05-03] MEDS ORDERED: MACR100 PO (14:57)
[2021-05-03] MEDS ORDERED: FUROSEMIDE 40MG VIAL IV ONE (15:00)
== END 2021-05-03 15:09 | disposition home or self-care (01) ==
LOC: EDH 13:05
DX: I11.0 Hypertensive heart disease with heart failure (principal); I50.9 Heart failure, unspecified; R30.0 Dysuria; E87.70 Fluid overload, unspecified; E11.9 Type 2 diabetes mellitus without complications; E78.00 Pure hypercholesterolemia, unspecified; I48.91 Unspecified atrial fibrillation; I25.2 Old myocardial infarction; Z79.01 Long term (current) use of anticoagulants; Z79.4 Long term (current) use of insulin; Z79.899 Other long term (current) drug therapy; Z86.73 Personal history of transient ischemic attack (TIA), and cerebral infarction without residual deficits; Z88.8 Allergy status to other drugs, medicaments and biological substances; Z90.49 Acquired absence of other specified parts of digestive tract; Z95.1 Presence of aortocoronary bypass graft
CPT/HCPCS: 36415; 71045; 74176; 80053; 81001; 83605; 83880; 84484; 85025; 87040 ×2; 93005; 96374; 99285; J1940

== ENCOUNTER 2022-02-28 12:53 | Emergency (ER) | payer OTHER ==
[~2022-02-28] VITALS: Ht 182.9 cm; Wt 108.9 kg
[~2022-02-28 12:53] MED LIST changes: +MACR100 PO
[2022-02-28 14:33] LABS: BASOPHILS % (AUTO) 0.5 % (0.0-5.0); HEMATOCRIT 42.6 % (42-54); LYMPHOCYTES % (AUTO) 19.9 % (21.0-51.0); MEAN CORPUSCULAR HEMOGLOBIN 35.3 pg (27.0-33.0); MEAN CORPUSCULAR HGB CONC 33.6 g/dL (32.0-36.0); MEAN CORPUSCULAR VOLUME 105.2 fL (79-99); MONOCYTES % (AUTO) 12.1 % (3.0-13.0); NEUTROPHILS % (AUTO) 65.2 % (40.0-77.0); PLATELET COUNT (AUTO) 250 K/uL (130-400); RED BLOOD CELL COUNT(AUTO) 4.05 MIL/uL (4.50-6.20); RED CELL DISTRIBUTION WIDTH 14.3 % (11.0-15.5); WHITE BLOOD COUNT (AUTO) 9.7 K/uL (4.8-10.8)
[2022-02-28 15:04] LABS: ALBUMIN 3.3 g/dL (3.5-5.0); TOTAL PROTEIN, SERUM 6.6 g/dL (6.0-8.3)
[2022-02-28 16:51] VITALS: BP 123/74
[2022-02-28] MEDS ORDERED: CLINDAMYCIN IVPB 600MG/50ML 50 ML IV SCH (17:00)
[2022-02-28] MEDS ORDERED: CLIN-141 PO (18:02)
[2022-02-28] MEDS ORDERED: CLINDAMYCIN 150 MG CAP ONE (18:24)
[2022-02-28] MEDS ORDERED: CLINDAMYCIN 150 MG CAP PO ONE (18:30)
== END 2022-02-28 18:33 | disposition home or self-care (01) ==
LOC: EDH 12:53
DX: L02.413 Cutaneous abscess of right upper limb (principal); E11.9 Type 2 diabetes mellitus without complications; E78.00 Pure hypercholesterolemia, unspecified; I11.0 Hypertensive heart disease with heart failure; I50.9 Heart failure, unspecified; I48.91 Unspecified atrial fibrillation; Z88.8 Allergy status to other drugs, medicaments and biological substances; Z91.013 Allergy to seafood; Z95.1 Presence of aortocoronary bypass graft; Z79.899 Other long term (current) drug therapy; Z79.84 Long term (current) use of oral hypoglycemic drugs; Z90.49 Acquired absence of other specified parts of digestive tract; Z90.89 Acquired absence of other organs
CPT/HCPCS: 99284; 96365; 10060; 80053; 85025; 87040 ×2; 83605; 36415; J3490

== ENCOUNTER 2022-11-16 13:10 | Emergency (ER) | payer OTHER ==
[~2022-11-16] VITALS: Ht 60 cm; Wt 104.3 kg
[~2022-11-16 13:10] MED LIST changes: +CLIN-141 PO
[2022-11-16 14:19] LABS: BASOPHILS # (AUTO) 0.06 K/uL (0.00-0.20); BASOPHILS % (AUTO) 0.8 % (0.0-5.0); EOSINOPHILS # (AUTO) 0.12 K/uL (0.00-0.70); EOSINOPHILS % (AUTO) 1.7 % (0.0-8.0); IMMATURE GRANULOCYTE ABSOLUTE 0.02 K/uL (0-1); LYMPHOCYTES # (AUTO) 1.8 K/uL (1.0-4.8); MEAN CORPUSCULAR HEMOGLOBIN 35.4 pg (27.0-33.0); MEAN CORPUSCULAR HGB CONC 33.1 g/dL (32.0-36.0); MEAN CORPUSCULAR VOLUME 106.9 fL (79-99); MONOCYTES # (AUTO) 0.8 K/uL (0.1-1.0); MONOCYTES % (AUTO) 11.3 % (3.0-13.0); NEUTROPHILS # (AUTO) 4.3 K/uL (1.8-7.7); NEUTROPHILS % (AUTO) 60.9 % (40.0-77.0); PLATELET COUNT (AUTO) 272 K/uL (130-400); RED BLOOD CELL COUNT(AUTO) 3.93 MIL/uL (4.50-6.20); RED CELL DISTRIBUTION WIDTH 14.3 % (11.0-15.5); WHITE BLOOD COUNT (AUTO) 7.1 K/uL (4.8-10.8)
[2022-11-16 14:22] LABS: APPEARANCE,URINE CLEAR (CLEAR); BILIRUBIN,URINE NEGATIVE (NEGATIVE); COLOR,URINE LIGHT-YELLOW (YELLOW); GLUCOSE, URINE (UA) TRACE mg/dL (NEGATIVE); KETONES,URINE 5 mg/dL (NEGATIVE); LEUKOCYTE ESTERASE ,URINE 25 Leu/uL (NEGATIVE); NITRATE,URINE NEGATIVE (NEGATIVE); OCCULT BLOOD,URINE NEGATIVE (NEGATIVE); PROTEIN,URINE NEGATIVE (NEGATIVE); UROBILINOGEN,URINE 0.2 mg/dL (0.2-1.0)
[2022-11-16 14:28] LABS: CREATININE 1.1 mg/dL (0.5-1.5); POTASSIUM 4.6 mmol/L (3.5-5.1)
[2022-11-16 14:32] LABS: ALBUMIN 3.3 g/dL (3.5-5.0); BILIRUBIN,TOTAL 0.8 mg/dL (0.2-1.0); TOTAL PROTEIN, SERUM 6.4 g/dL (6.0-8.3)
[2022-11-16 15:15] LABS: MUCUS,URINE RARE LPF (None Seen); RBC,URINE 0-1 /HPF (0-1); SQUAMOUS EPITHELIAL CELL,UR RARE /HPF (0-2)
[2022-11-16] MEDS ORDERED: LEVOFLOXACIN 500 MG/D5W 100 ML 100 ML IV STA (17:42)
[2022-11-16 18:09] VITALS: BP 129/70; PULSE 60; RESP 20; O2SAT 98
[2022-11-16] MEDS ORDERED: LEVO750T68 PO (18:23)
== END 2022-11-16 18:31 | disposition home or self-care (01) ==
LOC: EDH 13:10
DX: N39.0 Urinary tract infection, site not specified (principal); I11.0 Hypertensive heart disease with heart failure; I50.9 Heart failure, unspecified; E11.9 Type 2 diabetes mellitus without complications; E78.00 Pure hypercholesterolemia, unspecified; I48.91 Unspecified atrial fibrillation; Z79.84 Long term (current) use of oral hypoglycemic drugs; Z79.899 Other long term (current) drug therapy; Z86.73 Personal history of transient ischemic attack (TIA), and cerebral infarction without residual deficits; Z90.49 Acquired absence of other specified parts of digestive tract; Z95.1 Presence of aortocoronary bypass graft; Z88.8 Allergy status to other drugs, medicaments and biological substances; Z90.89 Acquired absence of other organs; Z98.890 Other specified postprocedural states
CPT/HCPCS: 99284; 96365; 80053; 85025; 83605; 81001; 36415; 84145; J1956

== ENCOUNTER 2024-04-20 09:23 | Inpatient (IN) | payer OTHER, MEDICARE ==
[~2024-04-20] VITALS: Ht 180.3 cm; Wt 98.9 kg
[~2024-04-20 09:23] MED LIST changes: -CARV12.511 PO; -CLIN-141 PO; +FURO20TA4 PO; -FURO80TA87 PO; -MACR100 PO; -METF-444 PO; +METF-446 PO; +METO25 PO; +SACU1TAB4 PO; -SILO8CAP6 PO
[2024-04-20 10:02] LABS: BASOPHILS # (AUTO) 0.08 K/uL (0.00-0.20); BASOPHILS % (AUTO) 0.5 % (0.0-5.0); EOSINOPHILS # (AUTO) 0.24 K/uL (0.00-0.70); EOSINOPHILS % (AUTO) 1.6 % (0.0-8.0); IMMATURE GRANULOCYTE ABSOLUTE 0.05 K/uL (0-1); LYMPHOCYTES # (AUTO) 1.5 K/uL (1.0-4.8); LYMPHOCYTES % (AUTO) 9.8 % (21.0-51.0); MEAN CORPUSCULAR HEMOGLOBIN 35.7 pg (27.0-33.0); MEAN CORPUSCULAR HGB CONC 33.6 g/dL (32.0-36.0); MEAN CORPUSCULAR VOLUME 106.3 fL (79-99); MONOCYTES # (AUTO) 1.5 K/uL (0.1-1.0); MONOCYTES % (AUTO) 10.4 % (3.0-13.0); NEUTROPHILS # (AUTO) 11.4 K/uL (1.8-7.7); NEUTROPHILS % (AUTO) 77.4 % (40.0-77.0); PLATELET COUNT (AUTO) 343 K/uL (130-400); RED BLOOD CELL COUNT(AUTO) 4.14 MIL/uL (4.50-6.20); RED CELL DISTRIBUTION WIDTH 14.9 % (11.0-15.5); WHITE BLOOD COUNT (AUTO) 14.8 K/uL (4.8-10.8)
[2024-04-20 10:10] LABS: CREATININE 0.9 mg/dL (0.5-1.3)
[2024-04-20 10:24] LABS: BILIRUBIN,URINE NEGATIVE (NEGATIVE); GLUCOSE, URINE (UA) >=1000 mg/dL (NEGATIVE); KETONES,URINE 10 mg/dL (NEGATIVE); LEUKOCYTE ESTERASE ,URINE 500 Leu/uL (NEGATIVE); NITRATE,URINE 2+ (NEGATIVE); OCCULT BLOOD,URINE LARGE (NEGATIVE); PH,URINE 5.5 (5.0-8.0); UROBILINOGEN,URINE 0.2 mg/dL (0.2-1.0)
[2024-04-20 10:25] LABS: ADD UA MICROSCOPIC YES; APPEARANCE,URINE CLOUDY (CLEAR); COLOR,URINE BROWN (YELLOW); PROTEIN,URINE 30 mg/dL (NEGATIVE)
[2024-04-20 10:28] LABS: BACTERIA,URINE MOD /HPF (None Seen); RBC,URINE TNTC /HPF (0-1); WBC,URINE TNTC /HPF (0-1)
--- NOTE | 2024-04-20 11:02 | ERN ---
General Chief Complaint: Urinary Frequency Stated Complaint: UDYSURIA Time Seen by MD: 09:27 Source: patient History of Present Illness Initial Comments PATIENT IS A AN 79-YEAR-OLD GENTLEMAN COMING IN TO BE EVALUATED FOR DYSURIA. PATIENT STATES THAT HE HAS BEEN ON ANTIBIOTICS FOR TWO WEEKS TO TRY TO TREAT THIS UTI, BUT STATES SHE IS HE STILL FEELS A IT WAS THERE. PATIENT ALSO HAS HAD GENERALIZED BODY WEAKNESS SINCE THEN. 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 Reported Medications Furosemide (Furosemide) 20 Mg Tablet, 20 MG PO BID, TAB 03/15/23 Empagliflozin (Jardiance) 25 Mg Tablet, 12.5 MG PO DAILY, TAB 03/15/23 Isosorbide Mononitrate (Isosorbide Mononitrate ER) 30 Mg Tab.er.24h, 15 MG PO DAILY, TAB 03/15/23 Finasteride (Finasteride) 5 Mg Tablet, 5 MG PO HS, TAB 03/15/23 Sacubitril/Valsartan (Entresto 97 mg-103 mg Tablet) 97 Mg-103 Mg Tablet, 1 EACH PO DAILY, TAB 03/15/23 Metformin HCl (Metformin HCl) 1,000 Mg Tablet, 1000 MG PO BID, TAB 03/15/23 Insuln Asp Prt/Insulin Aspart (Novolog Mix 70-30 Flexpen Syrn) 100 Unit/1 Ml Insuln.pen, 25 UNITS SQ TID, SYRINGE 03/21/21 Insulin Glargine,Hum.rec.anlog (Lantus) 100 Units/Ml Inj, 60 UNITS SQ HS, ML 09/03/20 Omeprazole (Omeprazole) 20 Mg Capsule.dr, 20 MG PO DAILY, CAP 09/03/20 Simvastatin (Simvastatin) 80 Mg Tablet, 80 MG PO HS, TAB 05/20/20 Apixaban (Eliquis) 5 Mg Tablet, 5 MG PO BID, TAB 05/20/20 Past Medical History Past Medical History: A-Fib, Cancer, CHF, Diabetes-Type II, Heart Disease, Hypertension, UTI Past Surgical History: CABG Surgical History Other: PANCRECTOMY Social History Social History: Negative, Other ROS Dictation CONSTITUTIONAL: NO CHILLS, NO FEVER, NO WEAKNESS, NO DIAPHORESIS, NO MALAISE. HEAD/FACE: NO SIGNS OF TRAUMA. EENT: NO EYE PAIN, NO BLURRED VISION, NO TEARING, NO DOUBLE VISION, NO EAR PAIN, NO EAR DISCHARGE, NO NOSE PAIN, NO NASAL CONGESTION, NO THROAT PAIN, NO THROAT SWELLING, NO MOUTH PAIN. RESPIRATORY: NO COUGH, NO ORTHOPNEA, NO SOB, NO STRIDOR, NO WHEEZING. CARDIOVASCULAR: NO CHEST PAIN, NO EDEMA, NO PALPITATIONS, NO SYNCOPE. GASTROINTESTINAL/ABDOMINAL: NO ABDOMINAL PAIN, NO CONSTIPATION, NO DIARRHEA, NO NAUSEA, NO VOMITING. GENITOURINARY: NO ABNORMAL DISCHARGE, DYSURIA, NO FREQUENT URINATION, NO HEMATURIA. NO COMPLAINTS OF PAIN IN THE GENITALS. MUSCULOSKELETAL: NO BACK PAIN, NO GOUT, NO JOINT PAIN, NO JOINT SWELLING, NO MUSCLE PAIN, NO MUSCLE STIFFNESS, NO NECK PAIN. INTEGUMENTARY: NO CHANGE IN COLOR, NO CHANGE IN HAIR/NAILS, NO DRYNESS, NO LESION, NO LUMPS, NO RASH. NEUROLOGICAL/PSYCH: NO ANXIETY, NOT DEPRESSED, NO EMOTIONAL PROBLEM, NO HEADACHE, NO NUMBNESS, NO PRE-EXISTING DEFICIT, NO HISTORY OF SEIZURES, NO TREMORS, NO WEAKNESS. HEMATOLOGIC/LYMPHATIC: NOT ANEMIC, NO HISTORY OF BLOOD CLOTS, NO APPARENT BLEEDING, NO BRUISING, GLANDS NOT SWOLLEN. ALL SYSTEMS NEGATIVE, EXCEPT NOTED. Physical Exam Physical Exam Dictation VITAL SIGNS: REVIEWED. GENERAL APPEARANCE: ALERT, ORIENTED X3, NO ACUTE DISTRESS, OBESE. HEAD AND FACE: NON-TRAUMATIC. EYES: PERRL, PINK CONJUNCTIVAS, EYELID NO TRAUMA, ANTERIOR CHAMBER CLEAR. EARS: PINNAS INTACT AND NO SIGNS OF TRAUMA OR ERYTHEMA. EAR CANALS CLEAR AND NO DISCHARGE. TMS NO ERYTHEMA. NOSE: NO DISCHARGE, NO BLEEDING. OROPHARYNX: MOUTH NORMAL, TEETH NO CARIES, TONGUE PINK. PHARYNX CLEAR, NO ERYTHEMA. TONSILS NO EXUDATES, NO ABSCESSES NOTED. MUCOUS MEMBRANE MOIST. NECK: SUPPLE, NON-TENDER, NO THYROMEGALY, NO MASSES, NO JVD, NO BRUITS. BREAST: DEFERRED. CHEST: NO TENDERNESS, NO CREPITUS, NO PARADOXICAL MOVEMENT, NO RETRACTIONS. LUNGS: CLEAR, WELL-VENTILATED, SYMMETRIC, NO RALES, NO WHEEZING, NO RHONCHI, NO STRIDOR, GOOD BREATH SOUNDS BILATERALLY. HEART: REGULAR RATE, REGULAR RHYTHM, NO MURMUR, NO GALLOPS. VASCULAR: NO PERIPHERAL EDEMA. ABDOMEN: SOFT, POSITIVE BOWEL SOUNDS, NONDISTENDED, NO GUARDING, NONTENDER, NO REBOUND, NO MASSES NO HEPATOMEGALY, NO SPLENOMEGALY, NO WILLS'S SIGN, NO HERNIAS. RECTAL: DEFERRED. GENITAL: DEFERRED. NEUROLOGICAL: NORMAL SPEECH, GROSS MOTOR FUNCTION INTACT, GROSS SENSORY FU NCTION INTACT. MUSCULOSKELETAL: NECK NONTENDER, FULL RANGE OF MOTION, BACK NONTENDER, FULL RANGE OF MOTION. EXTREMITIES: NONTENDER, FULL RANGE OF MOTION. SKIN: COLOR PINK, DRY, NO TURGOR, NO RASH, NO LACERATIONS, NO ABRASIONS, NO CONTUSIONS. LYMPHATICS: DEFERRED. Results Laboratory and Microbiology Lab and Micro Result Laboratory Tests Test 04/20/24 09:48 04/20/24 10:03 White Blood Count 14.8 K/uL (4.8-10.8) H Red Blood Count 4.14 MIL/uL (4.50-6.20) L Hemoglobin 14.8 g/dL (14.0-18.0) Hematocrit 44.0 % (42-54) Mean Corpuscular Volume 106.3 fL (79-99) H Mean Corpuscular Hemoglobin 35.7 pg (27.0-33.0) H Mean Corpuscular Hemoglobin Concent 33.6 g/dL (32.0-36.0) Red Cell Distribution Width 14.9 % (11.0-15.5) Platelet Count 343 K/uL (130-400) Mean Platelet Volume 9.0 fL (7.5-10.5) Immature Granulocyte % (Auto) 0.3 % (0-1) Neutrophils (%) (Auto) 77.4 % (40.0-77.0) H Lymphocytes (%) (Auto) 9.8 % (21.0-51.0) L Monocytes (%) (Auto) 10.4 % (3.0-13.0) Eosinophils (%) (Auto) 1.6 % (0.0-8.0) Basophils (%) (Auto) 0.5 % (0.0-5.0) Neutrophils # (Auto) 11.4 K/uL (1.8-7.7) H Lymphocytes # (Auto) 1.5 K/uL (1.0-4.8) Monocytes # (Auto) 1.5 K/uL (0.1-1.0) H Eosinophils # (Auto) 0.24 K/uL (0.00-0.70) Basophils # (Auto) 0.08 K/uL (0.00-0.20) Absolute Immature Granulocyte (auto 0.05 K/uL (0-1) Nucleated Red Blood Cells 0.0 % (0.0-0.19) White Cell Morphology Comment See comments Red Blood Cell Morphology See comments Sodium Level 135 mmol/L (136-145) L Potassium Level 4.0 mmol/L (3.5-5.1) Chloride Level 100 mmol/L (101-111) L Carbon Dioxide Level 28 mmol/L (21-32) Blood Urea Nitrogen 22 mg/dL (7-18) H Creatinine 0.9 mg/dL (0.5-1.3) Glomerular Filtration Rate Calc 86 mL/min (>90) Random Glucose 172 mg/dL (70-105) H Total Calcium 9.2 mg/dL (8.5-10.1) Urine Color BROWN (YELLOW) H Urine Appearance CLOUDY (CLEAR) H Urine pH 5.5 (5.0-8.0) Urine Specific [place] 1.020 (1.001-1.031) Urine Protein 30 mg/dL (NEGATIVE) H Urine Glucose (UA) >=1000 mg/dL (NEGATIVE) H Urine Ketones 10 mg/dL (NEGATIVE) H Urine Occult Blood LARGE (NEGATIVE) H Urine Nitrate 2+ (NEGATIVE) H Urine Bilirubin NEGATIVE mg/dL (NEGATIVE) Urine Urobilinogen 0.2 mg/dL (0.2-1.0) Urine Leukocyte Esterase 500 Cory/uL (NEGATIVE) H Urine RBC TNTC /HPF (0-1) H Urine WBC TNTC /HPF (0-1) H Urine Bacteria MOD /HPF (None Seen) Labs Reviewed?: Yes MDM MDM: DIFFERENTIAL DIAGNOSIS: UTI, FAILED OUTPATIENT THERAPY, DEHYDRATION, RATIONALE: TESTS CONSIDERED AND ORDERED SECONDARY TO SHARED DECISION MAKING INCLUDE: LABS, ECG AND RADIOLOGY PREVIOUS OUTSIDE RECORDS REVIEWED: OLD ER VISITS. RISK OF COMPLICATION AND/OR MORBIDITY OR MORTALITY OF PATIENT MANAGEMENT: NONE MEDICATIONS-PER MEDICATION RECONCILIATION NEED FOR HOSPITALIZATION: PATIENT DOES MEET CRITERIA FOR HOSPITALIZATION. NEED FOR EMERGENCY MAJOR/MINOR SURGERY: NO THERE ARE NO SOCIAL CONCERNS WITH THIS PATIENT. PRESCRIPTION DRUG MANAGEMENT PRESCRIPTIONS WILL INCLUDE SYMPTOMATIC CARE PATIENT'S PRIOR EXTERNAL MEDICAL RECORDS FROM OTHER ER VISITS WERE REVIEWED BY ME INDICATED. PRIOR TESTING AND RESULTS FROM PREVIOUS VISITS WERE REVIEWED. PRIOR TESTS WERE TAKEN INTO ACCOUNT WITH MEDICAL DECISION MAKING AND RESOURCE UTILIZATION, INDEPENDENT HISTORIAN/HISTORIANS WERE USED TO OBTAIN COMPLETE MED ICAL HISTORY. I INDEPENDENTLY INTERPRETED THE TEST THAT WERE PERFORMED, RESULTS WERE REVIEWED BY ME AND CONSIDERED FINDINGS ON RADIOLOGY IF ORDERED. MEDICAL MANAGEMENT AND EXAMINATION INTERPRETATION DISCUSSIONS WERE HAD BY ME WITH OTHER QUALIFIED HEALTHCARE PROFESSIONALS INDICATED FOR THE PATIENT'S CARE. PER PATIENT HE HAS BEEN TAKING LEVAQUIN AND CEFUROXIME WHICH HAVE NOT WO RKED. PATIENT WILL BE ADMITTED UNDER THE CARE OF HOSPITALIST GROUP FOR ONGOING MANAGEMENT. ED Course Orders Procedure Category Date Status Time Urinalysis Profile LAB 04/20/24 Complete 09:31 Cbc With Differential LAB 04/20/24 Complete 09:40 Basic Metabolic Panel LAB 04/20/24 Complete 09:40 Culture Urine NUBIA 04/20/24 In Process 10:26 Vital Signs Date Time Temp Pulse Resp B/P (MAP) Pulse Ox O2 Delivery O2 Flow Rate FiO2 04/20/24 09:56 97.2 84 20 141/65 98 Room Air* 0 21 04/20/24 09:25 97.9 70 18 152/68 96 Room Air 0 DX & DISP Disposition: Inpatient Decision to Admit Time: 11:11 Departure Impression: Primary Impression: UTI (urinary tract infection) Condition: Stable Referrals: JAVIER ORONA MD (PCP) ALBERTO BARKER MD Apr 20, 2024 11:02
--- NOTE | 2024-04-20 11:19 | NUR ---
MED REC REVIEWED WITH PATIENT AND UPDATED AT THIS TIME.
[2024-04-20] MEDS: ZOSYN 3.375GM +NS 50ML IV ONE (11:23)
--- NOTE | 2024-04-20 11:52 | HP ---
[facility] HISTORY AND PHYSICAL Date of Service: Apr 20, 2024 Time of Service: 11:52 HISTORY OF PRESENT ILLNESS: Date of service: 04/20/2024, patient was seen in ER room one 79-year-old male with underlying history of hypertension, hyperlipidemia, atrial fibrillation maintained on chronic anticoagulation with Eliquis, underlying cardiomyopathy, type 2 diabetes mellitus who presented to the ER for further evaluation of dysuria, urinary urgency, urinary frequency and suprapubic discomfort ongoing for the past two weeks. Patient was being seen by his PCP in [facility] and initially was prescribed levofloxacin for management of UTI. Subsequently, he was started on cefuroxime and patient states that he continues to have significant symptoms. He reports having had about 4-5 episodes of urinary tract infection in last year. Patient reports having subjective fevers, chills, malaise. He has been having rhinorrhea and mild shortness of breath. He does get short of breath with exertional activities. Denies any palpitations or chest pain or chest pressure. Patient is followed by Cardiology as outpatient and denies any significant swelling of the lower extremities. He has been maintained on outpatient Lasix, entresto, as well as metoprolol tartrate and Eliquis. On presentation to the hospital, patient was noted to be afebrile and hemodynamically stable. Labs [place] [address] with macrocytosis with MCV of 106.3, hemoglobin of 14.8, platelet count of 207425. BMP remarkable for sodium of 135, potassium 4.0, chloride of 100, BUN of 22, creatinine of 0.9. Patient reports having history of type 2 diabetes mellitus and is on outpatient insulin therapy, be takes NovoLog 70 30 insulin which he takes 25 units twice daily along with Lantus sometimes. He gets recurrent episodes of hypoglycemia with sugars into the 30s and 40s about 4-5 times per month. Denies any falls. Patient will be admitted for further management of nonresolving complicated urinary tract infection with failure five inpatient IV antibiotics. We will obtain a CT abdomen pelvis for further evaluation as well as consultation with Infectious Disease will be requested. REVIEW OF SYSTEMS CONSTITUTIONAL: Denies fevers, chills, or night sweats. No unintentional weight loss reported. NEUROLOGICAL: Denies headache, amaurosis fugax, motor weakness, sensory deficit, vertigo/spinning sensation, gait abnormalities, or tremors. ENT: No hearing loss, otalgia, otorrhea, rhinitis, rhinorrhea, hoarseness, or sore throat. CARDIOVASCULAR: Denies any exertional angina, dyspnea on exertion, orthopnea, paroxysmal nocturnal dyspnea, palpitations, life-threatening arrhythmias, claudication. PULMONARY: Denies any shortness of breath, cough, phlegm/sputum, hemoptysis, pleuritic chest pain. SLEEP: Denies morning headaches, daytime somnolence or napping. Denies difficulty falling asleep, staying asleep, waking from sleep. Denies knowledge of snoring. GASTROINTESTINAL: Constipation x5 days GENITOURINARY: Urinary frequency, urgency, suprapubic discomfort, ENDOCRINOLOGIC: Denies polyuria, polydipsia, polyphagia or heat/cold intolerances. HEMATOLOGIC: Denies thrombophilia/previous clots, or coagulopathy/bleeding disorders. ONCOLOGIC: Denies personal history of malignancy. DERMATOLOGIC: Denies rashes or pruritus. PSYCHIATRIC: Denies any suicidal or homicidal ideation. Denies hallucinations. ADDITIONAL PAST MEDICAL HISTORY: [Atrial fibrillation on chronic anticoagulation with Eliquis, history of ischemic cardiomyopathy, diabetes mellitus [id number], hypertension, hyperlipidemia, history of recurrent urinary tract infections] SOCIAL HISTORY: [Patient was tobacco smoker but quit 21 years ago. Patient currently drinks 2 beers that are 12 ounces each usually 2-3 times a week. Patient states he formerly drank daily.. He denies recreational drug use. He follows the [employer]. patient retired from the [employer]. Patient's PCP is Dr. De La Paz SURGICAL HISTORY: [Quadruple bypass surgery, splenectomy, partial pancreatectomy, cholecystectomy Allergies: Patient has allergic reaction to iodine, shellfish derived products Medications: Family will be bringing home medications to be reconciled and updated Coded Allergies: iodine (Unverified Allergy, Unknown, HIVES, 02/27/18) shellfish derived (Unverified Allergy, Unknown, 03/27/19) PHYSICAL EXAM GENERAL APPEARANCE: The patient is awake, alert, and oriented, in no acute cardiopulmonary distress. NEUROLOGICAL: Cranial nerves II-XII grossly intact. Motor is 5/5 in bilateral upper and lower extremities proximal to distal. No sensory deficits. HEENT: Face is symmetric. Pupils are equal and reactive. Extraocular movements are intact. NECK: Supple. No JVD. No thyromegaly. No submental, submandibular, pre-/postauricular, occipital or supraclavicular lymphadenopathy. CHEST: Normal chest expansion. No Telemetry. LUNGS: Absence of any rales, rhonchi or any wheezing. CARDIOVASCULAR: Regular. S1 and S2 normal. No appreciable rubs, murmurs or gallops. ABDOMEN: Soft, nondistended. Mild tenderness to palpation of the suprapubic region : Deferred. No Bess. EXTREMITIES: Non-edematous and not cyanotic. No clubbing. Good capillary refill. SKIN: No skin breakdown. Vital Sign (Last 24 Hours) 04/20/24 11:11 Temp 98.2 Pulse 95 Resp 20 B/P (MAP) 122/67 Pulse Ox 98 O2 Delivery Room Air* O2 Flow Rate 0 FiO2 21 LABS: Laboratory: Test 04/20/24 10:03 04/20/24 09:48 Range/Units Urine Color BROWN H YELLOW Urine Appearance CLOUDY H CLEAR Urine pH 5.5 5.0-8.0 Urine Specific [place] 1.020 1.001-1.031 Urine Protein 30 H NEGATIVE mg/dL Urine Glucose (UA) >=1000 H NEGATIVE mg/dL Urine Ketones 10 H NEGATIVE mg/dL Urine Occult Blood LARGE H NEGATIVE Urine Nitrate 2+ H NEGATIVE Urine Bilirubin NEGATIVE NEGATIVE mg/dL Urine Urobilinogen 0.2 0.2-1.0 mg/dL Urine Leukocyte Esterase 500 H NEGATIVE Cory/uL Urine RBC TNTC H 0-1 /HPF Urine WBC TNTC H 0-1 /HPF Urine Bacteria MOD None Seen /HPF White Blood Count 14.8 H 4.8-10.8 K/uL Red Blood Count 4.14 L 4.50-6.20 MIL/uL Hemoglobin 14.8 14.0-18.0 g/dL Hematocrit 44.0 42-54 % Mean Corpuscular Volume 106.3 H 79-99 fL Mean Corpuscular Hemoglobin 35.7 H 27.0-33.0 pg Mean Corpuscular Hemoglobin Concent 33.6 32.0-36.0 g/dL Red Cell Distribution Width 14.9 11.0-15.5 % Platelet Count 343 130-400 K/uL Mean Platelet Volume 9.0 7.5-10.5 fL Immature Granulocyte % (Auto) 0.3 0-1 % Neutrophils (%) (Auto) 77.4 H 40.0-77.0 % Lymphocytes (%) (Auto) 9.8 L 21.0-51.0 % Monocytes (%) (Auto) 10.4 3.0-13.0 % Eosinophils (%) (Auto) 1.6 0.0-8.0 % Basophils (%) (Auto) 0.5 0.0-5.0 % Neutrophils # (Auto) 11.4 H 1.8-7.7 K/uL Lymphocytes # (Auto) 1.5 1.0-4.8 K/uL Monocytes # (Auto) 1.5 H 0.1-1.0 K/uL Eosinophils # (Auto) 0.24 0.00-0.70 K/uL Basophils # (Auto) 0.08 0.00-0.20 K/uL Absolute Immature Granulocyte (auto 0.05 0-1 K/uL Nucleated Red Blood Cells 0.0 0.0-0.19 % White Cell Morphology Comment See comments Red Blood Cell Morphology See comments Sodium Level 135 L 136-145 mmol/L Potassium Level 4.0 3.5-5.1 mmol/L Chloride Level 100 L 101-111 mmol/L Carbon Dioxide Level 28 21-32 mmol/L Blood Urea Nitrogen 22 H 7-18 mg/dL Creatinine 0.9 0.5-1.3 mg/dL Glomerular Filtration Rate Calc 86 >90 mL/min Random Glucose 172 H 70-105 mg/dL Total Calcium 9.2 8.5-10.1 mg/dL Current Medications Medications (Trade) Dose Ordered Sig/Mary[place] Route PRN Reason Start Time Stop Time Status Last Admin Dose Admin Acetaminophen (TYLenol 325MG TAB) 650 mg Q6H PRN PO MILD PAIN (1-3) 04/20/24 12:00 05/20/24 11:59 Apixaban (EliquIS) 5 mg BID PO 04/20/24 21:00 05/20/24 20:59 UNV Budesonide (Pulmicort 0.5 Mg/2ml) 0.5 mg BIDRESP IH 04/20/24 12:00 05/20/24 11:59 Finasteride (PROscar 5 MG TAB) 5 mg HS PO 04/20/24 21:00 05/20/24 20:59 UNV Furosemide (LASix 20MG TAB) 20 mg BID PO 04/20/24 21:00 4/15/25 20:59 UNV Insulin Human Regular (humuLIN R 100 UNIT/ML 3ML) INSULIN SLIDING SCAL... ACHS SQ 04/20/24 16:30 05/20/24 16:29 Ipratropium [place] (AtrovENT UD) 0.5 mg Q6H PRN IH SHORTNESS OF BREATH 04/20/24 12:00 05/20/24 11:59 Isosorbide Mononitrate (Imdur 30mg Sr) 15 mg DAILY PO 04/21/24 09:00 05/21/24 08:59 UNV Metoprolol Tartrate (loprESSOR) 12.5 mg BID PO 04/20/24 21:00 05/20/24 20:59 UNV Miscellaneous Medication (Simvastatin ) 80 mg HS PO 04/20/24 21:00 05/20/24 20:59 UNV Ondansetron HCl (zoFRAN 4MG INJ) 4 mg Q6H PRN IVP NAUSEA/VOMITING 04/20/24 12:00 05/20/24 11:59 Pantoprazole Sodium (PROTonix 40MG INJ) 40 mg Q24H IVP 04/20/24 12:00 05/20/24 11:59 Pharmacy Profile Note (Pharmacy Communication) 1 each ONCE MISC 04/20/24 12:00 04/27/24 11:59 UNV Phenazopyridine HCl (PYRIdium HCL 200 MG TAB) 200 mg Q8H PRN PO urinary discomfort 04/20/24 12:00 05/20/24 11:59 Sacubitril/ Valsartan (Entresto 97 Mg-103 Mg Tablet) 1 each DAILY PO 04/21/24 09:00 05/21/24 08:59 UNV Thiamine HCl (Vitamin B-1) 100 mg Q24H IVP 04/20/24 12:00 05/20/24 11:59 DIAGNOSTICS / RADIOLOGY: Chest x-ray and CT abdomen pelvis without contrast is pending ASSESSMENT: Complicated urinary tract infection with failure of outpatient antibiotic therapy, POA History of recurrent UTI, POA Mild hyponatremia, POA Underlying history of ischemic cardiomyopathy, POA History of atrial fibrillation maintained on chronic anticoagulation with Eliquis, POA History of splenectomy, POA Constipation, POA History of recurrent severe hypoglycemia maintained on outpatient insulin therapy, POA History of type 2 diabetes mellitus, POA Hypertension, POA Hyperlipidemia, POA Frailty, POA Octogenarian, POA History of iodine/shellfish allergy, POA PLAN: Patient will be admitted to medical-surgical floor under telemetry monitoring Patient has been receiving outpatient treatment with levofloxacin and Ceftin with no improvement of urinary symptoms, urinalysis continues to show nitrite positive, leukocyte esterase positive with pyuria and bacteriuria We will start patient on IV meropenem, patient remains at risk of ESBL, we will obtain blood cultures and urine cultures and deescalate antibiotics in the next 48-72 hours based on culture sensitivity report Patient has been having some congestion and mildly productive cough, we will obtain a chest x-ray of flu and a COVID swab, we will obtain BNP and 2D echocardiogram as well We will continue with patient's outpatient dose of Lasix, metoprolol tartrate, Entresto and Eliquis We will obtain a CT abdomen pelvis without contrast, for further evaluation with regards to the complicated UTI Consultation with Infectious Disease will be requested Patient will be started on sliding scale insulin a.c. and HS, patient has been having recurrent severe hypoglycemia with sugars into the 30s and 40s, patient is also on outpatient Eliquis, we will start patient on dose adjusted basal Nishant tus based on blood glucose trend, we will have Dr. Veliz with endocrinology see this patient All labs will be repeated in the morning, we will keep patient on telemetry Anticipate hospitalization for at least 48-72 hours, pending blood culture and urine culture report Reports having constipation for 4-5 days now, he has been taking MiraLax at home, we will follow up CT abdomen pelvis and we will start patient on lactulose 20 g twice daily in addition to Colace, we will keep patient on a liquid diet until he has a good bowel movement Date of service: 04/20/2024, Plan of care was discussed with patient at bedside, Ruiz Pete MD Advanced Care Planning: Which of the following were discussed: Hospice care: Yes __ No _X_ Therapeutic options: Yes _X_ No __ Advance directives: Yes _X_ No __ Other discussions: Discussed with who?: Patient Voluntary nature of this service was explained to the patient? Yes _x_ No __ Amount of time spent: 20 minutes RUIZ PETE MD Apr 20, 2024 11:52
[2024-04-20] MEDS: BUDESONIDE 0.5 MG/2 ML INH IH SCH (11:54)
[2024-04-20 11:55] VITALS: PULSE 84; RESP 20; O2SAT 97
[2024-04-20] MEDS ORDERED: IpraTROPium 0.5 MG/2.5 ML INH IH PRN (12:00)
[2024-04-20] MEDS ORDERED: PHARMACY COMMUNICATION MISC SCH (12:00)
[2024-04-20] MEDS ORDERED: PHENAZOpyridine HCL 200 MG TAB 200 MG TABLET PO PRN (12:00)
[2024-04-20] MEDS ORDERED: ondanSETRON 4MG INJ IVP PRN (12:00)
[2024-04-20] MEDS ORDERED: acetaMINOPHEN 325 MG TAB PO PRN (12:00)
[2024-04-20] MEDS: PANTOPrazole 40 MG/VIAL IVP SCH (12:09)
[2024-04-20 12:10] LABS: HEMOGLOBIN A1C 6.9 % (4.0-6.0)
[2024-04-20] MEDS: MEROPENEM 1GM 1 GM VIAL IVPB SCH (12:10)
[2024-04-20] MEDS: THIAMINE HCL 100 MG/ML 2ML VIAL IVP SCH (12:10)
[2024-04-20 12:11] LABS: INR 1.05 (0.85-1.15); PROTHROMBIN TIME 11.1 SEC (9.6-11.6)
[2024-04-20 12:12] LABS: PARTIAL THROMBOPLASTIN TIME 31.5 SEC (26.3-35.5)
[2024-04-20 12:24] LABS: BILIRUBIN,DIRECT 0.2 mg/dL (0.0-0.3); BILIRUBIN,TOTAL 0.6 mg/dL (0.2-1.0); THYROID STIMULATING HORMONE 0.86 uIU/mL (0.36-3.74); TOTAL PROTEIN, SERUM 6.7 g/dL (6.0-8.3)
[2024-04-20 12:29] LABS: SARS-CoV-2, RNA, NAAT NEGATIVE SARS CoV-2 (NEGATIVE)
[2024-04-20 12:35] LABS: INFLUENZA TYPE A Negative For Type A (NEGATIVE); INFLUENZA TYPE B Negative For Type B (NEGATIVE)
--- NOTE | 2024-04-20 12:40 | HMCIMG ---
Exam Type: CT ABDOMEN/PELVIS W/O CONTRAST Clinical Information: non resolving UTI x 2 weeks, with suprpubic discomfort, lukeocytosis Comparison: None CT Dose Index (CTDI): 10.20 mGy Dose Length Product (DLP): 530.00 total mGy-cm PROTOCOL: Routine noncontrast helical scanning of the abdomen and pelvis was performed at 5mm collimation. Findings: No evidence of nephro or ureterolithiasis is found. No hydronephrosis or ureteral dilatation is seen. The lung bases are clear. The stomach is unremarkable. It shows no wall thickening. No gross ulceration is seen. It is not overly distended. There are no surrounding inflammatory changes. No wall lesions are identified to suggest cancer. The spleen is unremarkable. It is not enlarged. The pancreas shows normal anatomy. It is not fatty replaced. It shows no lesions. The pancreatic duct is not dilated. The gallbladder is unremarkable. It shows no cholelithiasis. The gallbladder wall is normal in thickness. There is no pericholecystic fluid. The is no acute or chronic inflammation noted. The adrenal glands are unremarkable. There is no enlargement. No lesions are noted. The liver is unremarkable. It shows no focal masses. The appendix is unremarkable. It shows no evidence of inflammation. No appendicolith is seen. The small bowel is unremarkable. There is no evidence of dilatation to suggest obstruction. No evidence of adynamic ileus is seen. There is no small bowel wall thickening to suggest enteritis. The colon is unremarkable. The urinary bladder is unremarkable. There is no wall thickening to suggest tumor or inflammation. There are no intraluminal calculi. There are no diverticula. There is no evidence of chronic bladder outlet obstruction. There is no evidence of urinary bladder distention to suggest urinary retention. The prostate is large. The bony and vascular structures are unremarkable for the patient's age. IMPRESSION: No acute pathology. Chronic changes as noted above. This study was performed using dose reduction techniques to include automated exposure control and/or adjustment of the mA and/or kV according to patient size.
--- NOTE | 2024-04-20 12:49 | HMCIMG ---
Exam Type: CHEST 1VW Clinical Information: assess for any significant infiltrates, cough, Shortness of breath Comparison: None Findings: There is cardiomegaly and there is status post median sternotomy. The lungs are clear of infiltrates. Impression: Clear lungs.
[2024-04-20] MEDS: LACTULOSE 20 GM/30 ML UDCUP PO SCH (12:57)
[2024-04-20] MEDS: INSULIN humuLIN R 100 UNIT/ML 3ML SQ SCH (16:30)
[2024-04-20 19:26] VITALS: PULSE 82; RESP 18; O2SAT 97
[2024-04-20] MEDS: doCUSate SODIUM 100 MG CAP PO SCH (19:50)
[2024-04-20] MEDS: APIXaban 5 MG TABLET PO SCH (19:51)
[2024-04-20] MEDS: furoSEMIDE 20 MG TABLET PO SCH (19:51)
[2024-04-20] MEDS: metoPROLOL tartRATE 25 MG TAB PO SCH (19:51)
[2024-04-20] MEDS: finaSTERide 5 MG TABLET PO SCH (19:52)
[2024-04-20] MEDS: simVASTatin 20 MG TABLET PO SCH (19:52)
--- NOTE | 2024-04-20 20:17 | NUR ---
CARE GIVEN TO KAREN VU Addendum: 04/20/24 at 2017 by [id number] CARE TRANSFERRED TO KAREN VU
--- NOTE | 2024-04-20 20:20 | NUR ---
REPORT RECEIVED FROM MIRELLA ANGUIANO, CONTINUED CARE AT THIS TIME. PATIENT RESTING COMFORTABLY IN BED, STATES PAIN WITH URINATION ONLY, NO ABD PAIN, CHEST PAIN, SOB OR COUGH/CONGESTION AT THIS TIME. ADJUSTED HOB TO 30 DEGREES AT THIS TIME, 30 ML WATER PROVIDED PER PT REQUEST.
[2024-04-20 22:27] VITALS: PULSE 85; RESP 21; O2SAT 97
[2024-04-20 23:05] VITALS: BP 146/65; PULSE 80; PULSE 88; RESP 20; RESP 22; TEMP 98.7; O2SAT 97
[2024-04-21] VITALS (9 sets, daily range): BP systolic 108–136; BP diastolic 59–77; PULSE 76–86; RESP 18–20; TEMP 97.8–98.3; O2SAT 95–96
[2024-04-21 05:41] LABS: BASOPHILS # (AUTO) 0.07 K/uL (0.00-0.20); BASOPHILS % (AUTO) 0.6 % (0.0-5.0); EOSINOPHILS # (AUTO) 0.22 K/uL (0.00-0.70); EOSINOPHILS % (AUTO) 1.9 % (0.0-8.0); HEMATOCRIT 42.4 % (42-54); IMMATURE GRANULOCYTE ABSOLUTE 0.02 K/uL (0-1); LYMPHOCYTES # (AUTO) 1.6 K/uL (1.0-4.8); LYMPHOCYTES % (AUTO) 13.6 % (21.0-51.0); MEAN CORPUSCULAR HEMOGLOBIN 35.2 pg (27.0-33.0); MEAN CORPUSCULAR HGB CONC 33.7 g/dL (32.0-36.0); MEAN CORPUSCULAR VOLUME 104.4 fL (79-99); MONOCYTES # (AUTO) 1.5 K/uL (0.1-1.0); MONOCYTES % (AUTO) 13.4 % (3.0-13.0); NEUTROPHILS # (AUTO) 8.1 K/uL (1.8-7.7); NEUTROPHILS % (AUTO) 70.3 % (40.0-77.0); PLATELET COUNT (AUTO) 365 K/uL (130-400); RED BLOOD CELL COUNT(AUTO) 4.06 MIL/uL (4.50-6.20); RED CELL DISTRIBUTION WIDTH 14.8 % (11.0-15.5); WHITE BLOOD COUNT (AUTO) 11.5 K/uL (4.8-10.8)
[2024-04-21 06:00] LABS: BILIRUBIN,TOTAL 0.7 mg/dL (0.2-1.0); CREATININE 0.9 mg/dL (0.5-1.3); MAGNESIUM 2.1 mg/dL (1.80-2.40); POTASSIUM 4.1 mmol/L (3.5-5.1); TOTAL PROTEIN, SERUM 6.8 g/dL (6.0-8.3)
--- NOTE | 2024-04-21 08:06 | CONS ---
CONSULT NOTE: endocrinology consult Date of Service: Apr 21, 2024 chief complaint: UTI Reason for consult: frequent hypoglycemia and dm-2 HISTORY OF PRESENT ILLNESS: 79-year-old male with underlying history of hypertension, hyperlipidemia, atrial fibrillation maintained on chronic anticoagulation with Eliquis, underlying cardiomyopathy, type 2 diabetes mellitus who presented to the ER for further evaluation of dysuria, urinary urgency, urinary frequency and suprapubic discomfort ongoing for the past two weeks. Patient was being seen by his PCP in [place] [facility] and initially was prescribed levofloxacin for management of UTI. Subsequently, he was started on cefuroxime and patient states that he continues to have significant symptoms. He reports having had about 4-5 episodes of urinary tract infection in last year. Patient is followed by Cardiology as outpatient and denies any significant swelling of the lower extremities. He has been maintained on outpatient Lasix, entresto, as well as metoprolol tartrate and Eliquis. On presentation to the hospital, patient was noted to be afebrile and hemodynamically stable. Labs [place] [id number] with macrocytosis with MCV of 106.3, hemoglobin of 14.8, platelet count of 685742. BMP remarkable for sodium of 135, potassium 4.0, chloride of 100, BUN of 22, creatinine of 0.9. Patient reports having history of type 2 diabetes mellitus and is on outpatient insulin therapy, be takes NovoLog insulin which he takes 25 units twice daily along with Lantus 60 units daily. He gets recurrent episodes of hypoglycemia with sugars into the 30s and 40s about 4-5 times per month. Denies any falls. hba1c 6.9% REVIEW OF SYSTEMS CONSTITUTIONAL: Denies fevers, chills, or night sweats. No unintentional weight loss reported. NEUROLOGICAL: Denies headache, amaurosis fugax, motor weakness, sensory deficit, vertigo/spinning sensation, gait abnormalities, or tremors. ENT: No hearing loss, otalgia, otorrhea, rhinitis, rhinorrhea, hoarseness, or sore throat. CARDIOVASCULAR: Denies any exertional angina, dyspnea on exertion, orthopnea, paroxysmal nocturnal dyspnea, palpitations, life-threatening arrhythmias, claudication. PULMONARY: Denies any shortness of breath, cough, phlegm/sputum, hemoptysis, pleuritic chest pain. SLEEP: Denies morning headaches, daytime somnolence or napping. Denies difficulty falling asleep, staying asleep, waking from sleep. GENITOURINARY: Urinary frequency, urgency, suprapubic discomfort, ENDOCRINOLOGIC: Denies polyuria, polydipsia, polyphagia or heat/cold intolerances. HEMATOLOGIC: Denies thrombophilia/previous clots, or coagulopathy/bleeding disorders. ONCOLOGIC: Denies personal history of malignancy. DERMATOLOGIC: Denies rashes or pruritus. PSYCHIATRIC: Denies any suicidal or homicidal ideation. Denies hallucinations. ADDITIONAL PAST MEDICAL HISTORY: [Atrial fibrillation on chronic anticoagulation with Eliquis, history of ischemic cardiomyopathy, diabetes mellitus [id number], hypertension, hyperlipidemia, history of recurrent urinary tract infections] SOCIAL HISTORY: [Patient was tobacco smoker but quit 21 years ago. Patient currently drinks 2 beers that are 12 ounces each usually 2-3 times a week. Patient states he formerly drank daily.. He denies recreational drug use. He follows the [employer]. patient retired from the [employer]. Patient's PCP is Dr. De La Paz SURGICAL HISTORY: [Quadruple bypass surgery, splenectomy, partial pancreatectomy, cholecystectomy Allergies: Patient has allergic reaction to iodine, shellfish derived products Medications: Family will be bringing home medications to be reconciled and updated Coded Allergies: iodine (Unverified Allergy, Unknown, HIVES, 02/27/18) shellfish derived (Unverified Allergy, Unknown, 03/27/19) PHYSICAL EXAM GENERAL APPEARANCE: The patient is awake, alert, and oriented, in no acute cardiopulmonary distress. NEUROLOGICAL: Cranial nerves II-XII grossly intact. Motor is 5/5 in bilateral upper and lower extremities proximal to distal. No sensory deficits. HEENT: Face is symmetric. Pupils are equal and reactive. Extraocular movements are intact. NECK: Supple. No JVD. No thyromegaly. No submental, submandibular, pre- /postauricular, occipital or supraclavicular lymphadenopathy. CHEST: Normal chest expansion. No Telemetry. LUNGS: Absence of any rales, rhonchi or any wheezing. CARDIOVASCULAR: Regular. S1 and S2 normal. No appreciable rubs, murmurs or gallops. ABDOMEN: Soft, nondistended. Mild tenderness to palpation of the suprapubic region : Deferred. No Bess. EXTREMITIES: Non-edematous and not cyanotic. No clubbing. Good capillary refill. SKIN: No skin breakdown. DIAGNOSTICS / RADIOLOGY: Chest x-ray and CT abdomen pelvis without contrast is pending ASSESSMENT: History of recurrent severe hypoglycemia due to high dose insulin, POA Patient reports having history of type 2 diabetes mellitus and is on outpatient insulin therapy, be takes NovoLog insulin which he takes 25 units twice daily along with Lantus 60 units daily. He gets recurrent episodes of hypoglycemia with sugars into the 30s and 40s about 4-5 times per month. DM-2, HBA1C 6.9% Complicated urinary tract infection with failure of outpatient antibiotic therapy, POA History of recurrent UTI, POA Mild hyponatremia, POA Underlying history of ischemic cardiomyopathy, POA History of atrial fibrillation maintained on chronic anticoagulation with Eliquis, POA History of splenectomy, POA Constipation, POA Denies any falls. hba1c 6.9% PLAN: Continue lantus 10 units daily start regular insulin 5 units qac before meals continue low dose ssi. monitor glucose q x 6 hourly decrease lantus to 30 units daily and decrease novolog to 10 units tid before meals at discharge. thanks for allowing me to participate in patient care and will continue to fo llow up. Vital Signs 04/20/24 04/21/24 04/21/24 23:05 04:07 06:54 Temp 98.1 Pulse 84 Resp 18 B/P (MAP) 136/77 Pulse Ox 96 O2 Delivery N/A Room Air O2 Flow Rate 0 FiO2 21 Hematology Labs: Test 04/21/24 05:17 04/20/24 09:48 Range/Units White Blood Count 11.5 H 4.8-10.8 K/uL Red Blood Count 4.06 L 4.50-6.20 MIL/uL Hemoglobin 14.3 14.0-18.0 g/dL Hematocrit 42.4 42-54 % Mean Corpuscular Volume 104.4 H 79-99 fL Mean Corpuscular Hemoglobin 35.2 H 27.0-33.0 pg Mean Corpuscular Hemoglobin Concent 33.7 32.0-36.0 g/dL Red Cell Distribution Width 14.8 11.0-15.5 % Platelet Count 365 130-400 K/uL Mean Platelet Volume 8.9 7.5-10.5 fL Immature Granulocyte % (Auto) 0.2 0-1 % Neutrophils (%) (Auto) 70.3 40.0-77.0 % Lymphocytes (%) (Auto) 13.6 L 21.0-51.0 % Monocytes (%) (Auto) 13.4 H 3.0-13.0 % Eosinophils (%) (Auto) 1.9 0.0-8.0 % Basophils (%) (Auto) 0.6 0.0-5.0 % Neutrophils # (Auto) 8.1 H 1.8-7.7 K/uL Lymphocytes # (Auto) 1.6 1.0-4.8 K/uL Monocytes # (Auto) 1.5 H 0.1-1.0 K/uL Eosinophils # (Auto) 0.22 0.00-0.70 K/uL Basophils # (Auto) 0.07 0.00-0.20 K/uL Absolute Immature Granulocyte (auto 0.02 0-1 K/uL Nucleated Red Blood Cells 0.0 0.0-0.19 % White Cell Morphology Comment See comments Red Blood Cell Morphology See comments Erythrocyte Sedimentation Rate 15 0-20 MM/HR Chemistry Labs: Test 04/21/24 05:17 04/21/24 05:01 04/20/24 11:54 04/20/24 09:48 Range/Units Sodium Level 141 136-145 mmol/L Potassium Level 4.1 3.5-5.1 mmol/L Chloride Level 106 101-111 mmol/L Carbon Dioxide Level 30 21-32 mmol/L Blood Urea Nitrogen 18 7-18 mg/dL Creatinine 0.9 0.5-1.3 mg/dL Glomerular Filtration Rate Calc 86 >90 mL/min Random Glucose 139 H 70-105 mg/dL Total Calcium 9.0 8.5-10.1 mg/dL Magnesium Level 2.10 1.80-2.40 mg/dL Total Bilirubin 0.7 0.2-1.0 mg/dL Aspartate Amino Transf (AST/SGOT) 23 10-37 U/L Alanine Aminotransferase (ALT/SGPT) 18 # 12-78 U/L Alkaline Phosphatase 146 H 50-136 U/L Total Protein 6.8 6.0-8.3 g/dL Albumin 3.0 L 3.5-5.0 g/dL Vitamin B12 Level 345 193-986 pg/mL Folic Acid (LAB) 13.00 2-20 ng/mL Whole Blood Glucose 148 H 70-110 MG/DL Lactic Acid Level 1.2 0.8-2.5 mmol/L Hemoglobin A1c 6.9 H 4.0-6.0 % Estimated Average Glucose (eAG) 151 H 70-126 mg/dL Direct Bilirubin 0.2 0.0-0.3 mg/dL C-Reactive Protein, Quantitative 7.10 H 0.5-3.0 mg/L B-Type Natriuretic Peptide 259 H 0-100 pg/mL Thyroid Stimulating Hormone (TSH) 0.86 # 0.36-3.74 uIU/mL Coagulation Labs: Test 04/20/24 09:48 Range/Units Prothrombin Time 11.1 9.6-11.6 SEC Prothromb Time International Ratio 1.05 0.85-1.15 Activated Partial Thromboplast Time 31.5 26.3-35.5 SEC Current Medications Medications (Trade) Dose Ordered Sig/Marysol Route Start Time Stop Time Status Last Admin Dose Admin Apixaban (EliquIS) 5 mg BID PO 04/20/24 21:00 05/20/24 20:59 04/20/24 19:51 5 MG Budesonide (Pulmicort 0.5 Mg/2ml) 0.5 mg BIDRESP IH 04/20/24 12:00 05/20/24 11:59 04/21/24 06:18 0.5 MG Docusate Sodium (COLace 100MG CAP) 100 mg BID PO 04/20/24 21:00 05/20/24 20:59 04/20/24 19:50 100 MG Finasteride (PROscar 5 MG TAB) 5 mg HS PO 04/20/24 21:00 05/20/24 20:59 04/20/24 19:52 5 MG Furosemide (LASix 20MG TAB) 20 mg BID PO 04/20/24 21:00 05/20/24 20:59 04/20/24 19:51 20 MG Insulin Glargine (LANtus 100 UNITS/ML 10 ML VIAL) 10 units DAILY SQ 04/21/24 09:00 05/21/24 08:59 Insulin Human Regular (humuLIN R 100 UNIT/ML 3ML) INSULIN SLIDING SCAL... ACHS SQ 04/20/24 16:30 05/20/24 16:29 04/20/24 20:28 2 UNIT Isosorbide Mononitrate (Imdur 30mg Sr) 15 mg DAILY PO 04/21/24 09:00 05/21/24 08:59 Lactulose (Constulose 20gm/ 30ml Udcup) 20 gm BID PO 04/20/24 13:00 05/20/24 12:59 04/20/24 19:51 20 GM Meropenem (Merrem 1gm) 1 gm Q8H IVPB 04/20/24 12:00 04/30/24 11:59 04/21/24 03:05 1 GM Metoprolol Tartrate (loprESSOR) 12.5 mg BID PO 04/20/24 21:00 05/20/24 20:59 04/20/24 19:51 12.5 MG Pantoprazole Sodium (PROTonix 40MG INJ) 40 mg Q24H IVP 04/20/24 12:00 05/20/24 11:59 04/20/24 12:09 40 MG Pharmacy Profile Note (Pharmacy Communication) 1 each ONCE MISC 04/20/24 12:00 04/20/24 12:00 DC Sacubitril/ Valsartan (Entresto 97 Mg-103 Mg Tablet) 1 each DAILY PO 04/21/24 09:00 05/21/24 08:59 Simvastatin (zoCOR) 80 mg HS PO 04/20/24 21:00 05/20/24 20:59 04/20/24 19:52 80 MG Thiamine HCl (Vitamin B-1) 100 mg Q24H IVP 04/20/24 12:00 05/20/24 11:59 04/20/24 12:10 100 MG GIOVANNI LIEBERMAN MD Apr 21, 2024 08:06
[2024-04-21] MEDS: SACUBITRIL/VALSARTAN 1 EACH TABLET PO SCH (09:34)
[2024-04-21] MEDS: ISOSORBIDE MONO 30MG SR TAB PO SCH (09:35)
[2024-04-21] MEDS: INSULIN GLARgine 100 UNITS/ML 10 ML VIAL SQ SCH (10:15)
--- NOTE | 2024-04-21 16:00 | NUR ---
MET W PATIENT AT BEDSIDE, INDEPENDENT, LIVES ALONE, NO DME OR SERVICES, DIRVES, DTR LIVES IN [place], FOLLOW WITH DR. ORONA AT [facility]. WILLING TO GO TO OUT PATIENT CLINIC FOR IV ABX. WILL FOLLOW UP Kaitlyn SANTAMARIA FOR ORDERS FOR OUT PATIENT ABX Addendum: 04/22/24 at 1729 by LOLIS JUSTICE RN CM Amended: Links added.
--- NOTE | 2024-04-21 17:07 | PN ---
[facility] PROGRESS NOTE Date of Service: Apr 21, 2024 Time of Service: 16:53 SUBJECTIVE: 79-year-old male with underlying history of hypertension, hyperlipidemia, atrial fibrillation maintained on chronic anticoagulation with Eliquis, underlying cardiomyopathy, type 2 diabetes mellitus who presented to the ER for further evaluation of dysuria, urinary urgency, urinary frequency and suprapubic discomfort ongoing for the past two weeks. Patient was being seen by his PCP [facility] and initially was prescribed levofloxacin for management of UTI. Subsequently, he was started on cefuroxime and patient states that he continues to have significant symptoms. He reports having had about 4-5 episodes of urinary tract infection in last year. Patient reports having subjective fevers, chills, malaise. He has been having rhinorrhea and mild shortness of breath. He does get short of breath with ex ertional activities. Denies any palpitations or chest pain or chest pressure. Patient is followed by Cardiology as outpatient and denies any significant swelling of the lower extremities. He has been maintained on outpatient Lasix, entresto, as well as metoprolol tartrate and Eliquis. On presentation to the hospital, patient was noted to be afebrile and hemodynamically stable. Labs [place] [address] with macrocytosis with MCV of 106.3, hemoglobin of 14.8, platelet count of 679200. BMP remarkable for sodium of 135, potassium 4.0, chloride of 100, BUN of 22, creatinine of 0.9. Patient reports having history of type 2 diabetes mellitus and is on outpatient insulin therapy, be takes NovoLog 70 30 insulin which he takes 25 units twice daily along with Lantus sometimes. He gets recurrent episodes of hypoglycemia with sugars into the 30s and 40s about 4-5 times per month. Denies any falls. Patient will be admitted for further management of nonresolving complicated urinary tract infection with failure five inpatient IV antibiotics. We will obtain a CT abdomen pelvis for further evaluation as well as consultation with Infectious Disease will be requested. 04/21/2024 - patient is seen in room 406. Patient's white blood count came down to 11.5 From 14.8. Patient is currently on meropenem, pending ID consultation. Glucose is trending at 100-180, we will continue to be monitoring it and adjust insulin as needed. The the labs are unremarkable and patient is currently hemodynamically stable. Endocrinology recommendations are appreciated.. REVIEW OF SYSTEMS CONSTITUTIONAL: Denies fevers, chills, or night sweats. No unintentional weight loss reported. NEUROLOGICAL: Denies headache, amaurosis fugax, motor weakness, sensory deficit, vertigo/spinning sensation, gait abnormalities, or tremors. ENT: No hearing loss, otalgia, otorrhea, rhinitis, rhinorrhea, hoarseness, or sore throat. CARDIOVASCULAR: Denies any exertional angina, dyspnea on exertion, orthopnea, paroxysmal nocturnal dyspnea, palpitations, life-threatening arrhythmias, claudication. PULMONARY: Denies any shortness of breath, cough, phlegm/sputum, hemoptysis, pleuritic chest pain. SLEEP: Denies morning headaches, daytime somnolence or napping. Denies difficulty falling asleep, staying asleep, waking from sleep. Denies knowledge of snoring. GASTROINTESTINAL: Constipation x5 days GENITOURINARY: Urinary frequency, urgency, suprapubic discomfort, ENDOCRINOLOGIC: Denies polyuria, polydipsia, polyphagia or heat/cold intolerances. HEMATOLOGIC: Denies thrombophilia/previous clots, or coagulopathy/bleeding disorders. ONCOLOGIC: Denies personal history of malignancy. DERMATOLOGIC: Denies rashes or pruritus. PSYCHIATRIC: Denies any suicidal or homicidal ideation. Denies hallucinations. PHYSICAL EXAM GENERAL APPEARANCE: The patient is awake, alert, and oriented, in no acute cardiopulmonary distress. NEUROLOGICAL: Cranial nerves II-XII grossly intact. Motor is 5/5 in bilateral upper and lower extremities proximal to distal. No sensory deficits. HEENT: Face is symmetric. Pupils are equal and reactive. Extraocular movements are intact. NECK: Supple. No JVD. No thyromegaly. No submental, submandibular, pre- /postauricular, occipital or supraclavicular lymphadenopathy. CHEST: Normal chest expansion. No Telemetry. LUNGS: Absence of any rales, rhonchi or any wheezing. CARDIOVASCULAR: Regular. S1 and S2 normal. No appreciable rubs, murmurs or gallops. ABDOMEN: Soft, nondistended. Mild tenderness to palpation of the suprapubic region : Deferred. No Bess. EXTREMITIES: Non-edematous and not cyanotic. No clubbing. Good capillary refill. SKIN: No skin breakdown. Vital Signs (last 8hr) Date Time Temp Pulse Resp B/P (MAP) Pulse Ox O2 Delivery O2 Flow Rate FiO2 04/21/24 12:00 98.2 76 18 108/59 95 Room Air LABS: Laboratory: Test 04/21/24 15:55 04/21/24 05:17 04/20/24 12:13 04/20/24 11:54 Range/Units Whole Blood Glucose 184 H 70-110 MG/DL White Blood Count 11.5 H 4.8-10.8 K/uL Red Blood Count 4.06 L 4.50-6.20 MIL/uL Hemoglobin 14.3 14.0-18.0 g/dL Hematocrit 42.4 42-54 % Mean Corpuscular Volume 104.4 H 79-99 fL Mean Corpuscular Hemoglobin 35.2 H 27.0-33.0 pg Mean Corpuscular Hemoglobin Concent 33.7 32.0-36.0 g/dL Red Cell Distribution Width 14.8 11.0-15.5 % Platelet Count 365 130-400 K/uL Mean Platelet Volume 8.9 7.5-10.5 fL Immature Granulocyte % (Auto) 0.2 0-1 % Neutrophils (%) (Auto) 70.3 40.0-77.0 % Lymphocytes (%) (Auto) 13.6 L 21.0-51.0 % Monocytes (%) (Auto) 13.4 H 3.0-13.0 % Eosinophils (%) (Auto) 1.9 0.0-8.0 % Basophils (%) (Auto) 0.6 0.0-5.0 % Neutrophils # (Auto) 8.1 H 1.8-7.7 K/uL Lymphocytes # (Auto) 1.6 1.0-4.8 K/uL Monocytes # (Auto) 1.5 H 0.1-1.0 K/uL Eosinophils # (Auto) 0.22 0.00-0.70 K/uL Basophils # (Auto) 0.07 0.00-0.20 K/uL Absolute Immature Granulocyte (auto 0.02 0-1 K/uL Nucleated Red Blood Cells 0.0 0.0-0.19 % Sodium Level 141 136-145 mmol/L Potassium Level 4.1 3.5-5.1 mmol/L Chloride Level 106 101-111 mmol/L Carbon Dioxide Level 30 21-32 mmol/L Blood Urea Nitrogen 18 7-18 mg/dL Creatinine 0.9 0.5-1.3 mg/dL Glomerular Filtration Rate Calc 86 >90 mL/min Random Glucose 139 H 70-105 mg/dL Total Calcium 9.0 8.5-10.1 mg/dL Magnesium Level 2.10 1.80-2.40 mg/dL Total Bilirubin 0.7 0.2-1.0 mg/dL Aspartate Amino Transf (AST/SGOT) 23 10-37 U/L Alanine Aminotransferase (ALT/SGPT) 18 # 12-78 U/L Alkaline Phosphatase 146 H 50-136 U/L Total Protein 6.8 6.0-8.3 g/dL Albumin 3.0 L 3.5-5.0 g/dL Vitamin B12 Level 345 193-986 pg/mL Folic Acid (LAB) 13.00 2-20 ng/mL Influenza Type A Antigen Negative For Type A NEGATIVE Influenza Type B Antigen Negative For Type B NEGATIVE SARS-CoV-2, RNA, NAAT NEGATIVE SARS CoV-2 NEGATIVE Lactic Acid Level 1.2 0.8-2.5 mmol/L Test 04/20/24 10:03 04/20/24 09:48 Range/Units Urine Color BROWN H YELLOW Urine Appearance CLOUDY H CLEAR Urine pH 5.5 5.0-8.0 Urine Specific [place] 1.020 1.001-1.031 Urine Protein 30 H NEGATIVE mg/dL Urine Glucose (UA) >=1000 H NEGATIVE mg/dL Urine Ketones 10 H NEGATIVE mg/dL Urine Occult Blood LARGE H NEGATIVE Urine Nitrate 2+ H NEGATIVE Urine Bilirubin NEGATIVE NEGATIVE mg/dL Urine Urobilinogen 0.2 0.2-1.0 mg/dL Urine Leukocyte Esterase 500 H NEGATIVE Cory/uL Urine RBC TNTC H 0-1 /HPF Urine WBC TNTC H 0-1 /HPF Urine Bacteria MOD None Seen /HPF White Cell Morphology Comment See comments Red Blood Cell Morphology See comments Erythrocyte Sedimentation Rate 15 0-20 MM/HR Prothrombin Time 11.1 9.6-11.6 SEC Prothromb Time International Ratio 1.05 0.85-1.15 Activated Partial Thromboplast Time 31.5 26.3-35.5 SEC Hemoglobin A1c 6.9 H 4.0-6.0 % Estimated Average Glucose (eAG) 151 H 70-126 mg/dL Direct Bilirubin 0.2 0.0-0.3 mg/dL C-Reactive Protein, Quantitative 7.10 H 0.5-3.0 mg/L B-Type Natriuretic Peptide 259 H 0-100 pg/mL Thyroid Stimulating Hormone (TSH) 0.86 # 0.36-3.74 uIU/mL Current Medications Medications (Trade) Dose Ordered Sig/Marysol Route PRN Reason Start Time Stop Time Status Last Admin Dose Admin Acetaminophen (TYLenol 325MG TAB) 650 mg Q6H PRN PO MILD PAIN (1-3) 04/20/24 12:00 05/20/24 11:59 Apixaban (EliquIS) 5 mg BID PO 04/20/24 21:00 05/20/24 20:59 04/21/24 09:34 5 MG Budesonide (Pulmicort 0.5 Mg/2ml) 0.5 mg BIDRESP IH 04/20/24 12:00 05/20/24 11:59 04/21/24 06:18 0.5 MG Docusate Sodium (COLace 100MG CAP) 100 mg BID PO 04/20/24 21:00 05/20/24 20:59 04/20/24 19:50 100 MG Finasteride (PROscar 5 MG TAB) 5 mg HS PO 04/20/24 21:00 05/20/24 20:59 04/20/24 19:52 5 MG Furosemide (LASix 20MG TAB) 20 mg BID PO 04/20/24 21:00 04/21/24 13:01 DC 04/21/24 09:34 20 MG Furosemide (LASix 20MG TAB) 20 mg DAILY@0600,1300 PO 04/22/24 06:00 05/22/24 05:59 Insulin Glargine (LANtus 100 UNITS/ML 10 ML VIAL) 10 units DAILY SQ 04/21/24 09:00 05/21/24 08:59 04/21/24 10:15 10 UNITS Insulin Human Regular (humuLIN R 100 UNIT/ML 3ML) INSULIN SLIDING SCAL... ACHS SQ 04/20/24 16:30 05/20/24 16:29 04/20/24 20:28 2 UNIT Ipratropium Anthony (AtrovENT UD) 0.5 mg Q6H PRN IH SHORTNESS OF BREATH 04/20/24 12:00 05/20/24 11:59 Isosorbide Mononitrate (Imdur 30mg Sr) 15 mg DAILY PO 04/21/24 09:00 05/21/24 08:59 04/21/24 09:35 15 MG Lactulose (Constulose 20gm/ 30ml Udcup) 20 gm BID PO 04/20/24 13:00 05/20/24 12:59 04/20/24 19:51 20 GM Meropenem (Merrem 1gm) 1 gm Q8H IVPB 04/20/24 12:00 04/30/24 11:59 04/21/24 12:41 1 GM Metoprolol Tartrate (loprESSOR) 12.5 mg BID PO 04/20/24 21:00 05/20/24 20:59 04/21/24 09:35 12.5 MG Ondansetron HCl (zoFRAN 4MG INJ) 4 mg Q6H PRN IVP NAUSEA/VOMITING 04/20/24 12:00 05/20/24 11:59 Pantoprazole Sodium (PROTonix 40MG INJ) 40 mg Q24H IVP 04/20/24 12:00 05/20/24 11:59 04/21/24 12:41 40 MG Pharmacy Profile Note (Pharmacy Communication) 1 each ONCE MISC 04/20/24 12:00 04/20/24 12:00 DC Phenazopyridine HCl (PYRIdium HCL 200 MG TAB) 200 mg Q8H PRN PO urinary discomfort 04/20/24 12:00 05/20/24 11:59 Sacubitril/ Valsartan (Entresto 97 Mg-103 Mg Tablet) 1 each DAILY PO 04/21/24 09:00 05/21/24 08:59 04/21/24 09:34 1 EACH Simvastatin (zoCOR) 80 mg HS PO 04/20/24 21:00 05/20/24 20:59 04/20/24 19:52 80 MG Thiamine HCl (Vitamin B-1) 100 mg Q24H IVP 04/20/24 12:00 05/20/24 11:59 04/21/24 12:42 100 MG DIAGNOSTICS / RADIOLOGY: [ ] ASSESSMENT: Complicated urinary tract infection with failure of outpatient antibiotic therapy, POA History of recurrent UTI, POA Mild hyponatremia, POA Underlying history of ischemic cardiomyopathy, POA History of atrial fibrillation maintained on chronic anticoagulation with Eliquis, POA History of splenectomy, POA Constipation, POA History of recurrent severe hypoglycemia maintained on outpatient insulin therapy, POA History of type 2 diabetes mellitus, POA Hypertension, POA Hyperlipidemia, POA Frailty, POA Octogenarian, POA History of iodine/shellfish allergy, POA History of CABG x4 PLAN: Complicated urinary tract infection, history of recurrent UTI Patient has been receiving outpatient treatment with levofloxacin and Ceftin with no improvement of urinary symptoms, urinalysis continues to show nitrite positive, leukocyte esterase positive with pyuria and bacteriuria We will start patient on IV meropenem, patient remains at risk of ESBL, we will obtain blood cultures and urine cultures and deescalate antibiotics in the next 48-72 hours based on culture sensitivity report CT abdomen came out negative for any findings Consultation with Infectious Disease will be requested Anticipate hospitalization for at least 48-72 hours, pending blood culture and urine culture report History of CABG x4, atrial fibrillation We will continue with patient's outpatient dose of Lasix, metoprolol tartrate, Entresto and Eliquis We will monitor I&Os. Uncontrolled diabetes and hypoglycemic episodes Patient will be started on sliding scale insulin a.c. and HS, patient has been having recurrent severe hypoglycemia with sugars into the 30s and 40s, patient is also on outpatient Eliquis, we will start patient on dose adjusted basal Lantus based on blood glucose trend, we will have Dr. Veliz with endocrinology see this patient We will follow endocrinology recommendations All labs will be repeated in the morning, we will keep patient on telemetry Reports having constipation for 4-5 days now, he has been taking MiraLax at home, we will follow up CT abdomen pelvis and we will start patient on lactulose 20 g twice daily in addition to Colace, we will keep patient on a liquid diet until he has a good bowel movement ATTESTATION BY PHYSICIAN I have seen and examined the patient. I reviewed the documentation, medical decision making, and treatment plan as noted by the resident provider above. I agree with the findings and plan of care. Ulysses Parra MD, KEERTI K MD Apr 21, 2024 17:07
[2024-04-21] MEDS ORDERED: LACTULOSE 20 GM/30 ML UDCUP PO PRN (19:30)
[2024-04-22] VITALS (9 sets, daily range): BP systolic 103–134; BP diastolic 52–77; PULSE 66–91; RESP 18–20; TEMP 97.6–98.4; O2SAT 94–96
[2024-04-22 05:44] LABS: BASOPHILS # (AUTO) 0.07 K/uL (0.00-0.20); BASOPHILS % (AUTO) 0.7 % (0.0-5.0); EOSINOPHILS # (AUTO) 0.29 K/uL (0.00-0.70); HEMATOCRIT 42.2 % (42-54); IMMATURE GRANULOCYTE ABSOLUTE 0.04 K/uL (0-1); LYMPHOCYTES % (AUTO) 20.3 % (21.0-51.0); MEAN CORPUSCULAR HEMOGLOBIN 35.3 pg (27.0-33.0); MEAN CORPUSCULAR HGB CONC 33.2 g/dL (32.0-36.0); MEAN CORPUSCULAR VOLUME 106.3 fL (79-99); MONOCYTES # (AUTO) 1.6 K/uL (0.1-1.0); MONOCYTES % (AUTO) 15.9 % (3.0-13.0); NEUTROPHILS # (AUTO) 5.8 K/uL (1.8-7.7); NEUTROPHILS % (AUTO) 59.7 % (40.0-77.0); PLATELET COUNT (AUTO) 344 K/uL (130-400); RED BLOOD CELL COUNT(AUTO) 3.97 MIL/uL (4.50-6.20); RED CELL DISTRIBUTION WIDTH 14.6 % (11.0-15.5); WHITE BLOOD COUNT (AUTO) 9.8 K/uL (4.8-10.8)
[2024-04-22] MEDS: furoSEMIDE 20 MG TABLET PO SCH (06:00)
[2024-04-22 06:07] LABS: POTASSIUM 4.1 mmol/L (3.5-5.1)
[2024-04-22] MEDS ORDERED: INSNOV SQ (08:17)
[2024-04-22] MEDS: INSULIN humuLIN R 100 UNIT/ML 3ML SQ SCH (08:41)
--- NOTE | 2024-04-22 09:18 | PN ---
[facility] PROGRESS NOTE Date of Service: Apr 22, 2024 Time of Service: 09:12 SUBJECTIVE: 79-year-old male with underlying history of hypertension, hyperlipidemia, atrial fibrillation maintained on chronic anticoagulation with Eliquis, underlying cardiomyopathy, type 2 diabetes mellitus who presented to the ER for further evaluation of dysuria, urinary urgency, urinary frequency and suprapubic discomfort ongoing for the past two weeks. Patient was being seen by his PCP in [facility] and initially was prescribed levofloxacin for management of UTI. Subsequently, he was started on cefuroxime and patient states that he continues to have significant symptoms. He reports having had about 4-5 episodes of urinary tract infection in last year. Patient reports having subjective fevers, chills, malaise. He has been having rhinorrhea and mild shortness of breath. He does get short of breath with ex ertional activities. Denies any palpitations or chest pain or chest pressure. Patient is followed by Cardiology as outpatient and denies any significant swelling of the lower extremities. He has been maintained on outpatient Lasix, entresto, as well as metoprolol tartrate and Eliquis. On presentation to the hospital, patient was noted to be afebrile and hemodynamically stable. Labs [place] [address] with macrocytosis with MCV of 106.3, hemoglobin of 14.8, platelet count of 186688. BMP remarkable for sodium of 135, potassium 4.0, chloride of 100, BUN of 22, creatinine of 0.9. Patient reports having history of type 2 diabetes mellitus and is on outpatient insulin therapy, be takes NovoLog 70 30 insulin which he takes 25 units twice daily along with Lantus sometimes. He gets recurrent episodes of hypoglycemia with sugars into the 30s and 40s about 4-5 times per month. Denies any falls. Patient will be admitted for further management of nonresolving complicated urinary tract infection with failure five inpatient IV antibiotics. We will obtain a CT abdomen pelvis for further evaluation as well as consultation with Infectious Disease will be requested. 04/21/2024 - patient is seen in room 406. Patient's white blood count came down to 11.5 From 14.8. Patient is currently on meropenem, pending ID consultation. Glucose is trending at 100-180, we will continue to be monitoring it and adjust insulin as needed. The the labs are unremarkable and patient is currently hemodynamically stable. Endocrinology recommendations are appreciated.. 04/22/2024 - patient says he feels better today and he also mentioned about having 3 bowel movements yesterday and 1 bowel movement this morning. He also added that he was not able to produce much urine, we will monitor Is&Os. Patient's white blood count came down to 9.8 From 11.5. Patient is hemodynamically stable and is asymptomatic otherwise. We will follow endocrinology recommendations for the glucose control. Patient also needs to follow up primary regarding the use of Jardiance which might be the reason for recurrent UTIs. We will plan the patient on discharge with ID recommendations. REVIEW OF SYSTEMS CONSTITUTIONAL: Denies fevers, chills, or night sweats. No unintentional weight loss reported. NEUROLOGICAL: Denies headache, amaurosis fugax, motor weakness, sensory deficit, vertigo/spinning sensation, gait abnormalities, or tremors. ENT: No hearing loss, otalgia, otorrhea, rhinitis, rhinorrhea, hoarseness, or sore throat. CARDIOVASCULAR: Denies any exertional angina, dyspnea on exertion, orthopnea, paroxysmal nocturnal dyspnea, palpitations, life-threatening arrhythmias, claudication. PULMONARY: Denies any shortness of breath, cough, phlegm/sputum, hemoptysis, pleuritic chest pain. SLEEP: Denies morning headaches, daytime somnolence or napping. Denies diffi culty falling asleep, staying asleep, waking from sleep. Denies knowledge of snoring. GASTROINTESTINAL: Constipation x5 days GENITOURINARY: Urinary frequency, urgency, suprapubic discomfort, ENDOCRINOLOGIC: Denies polyuria, polydipsia, polyphagia or heat/cold intolerances. HEMATOLOGIC: Denies thrombophilia/previous clots, or coagulopathy/bleeding disorders. ONCOLOGIC: Denies personal history of malignancy. DERMATOLOGIC: Denies rashes or pruritus. PSYCHIATRIC: Denies any suicidal or homicidal ideation. Denies hallucinations. PHYSICAL EXAM GENERAL APPEARANCE: The patient is awake, alert, and oriented, in no acute cardiopulmonary distress. NEUROLOGICAL: Cranial nerves II-XII grossly intact. Motor is 5/5 in bilateral upper and lower extremities proximal to distal. No sensory deficits. HEENT: Face is symmetric. Pupils are equal and reactive. Extraocular movements are intact. NECK: Supple. No JVD. No thyromegaly. No submental, submandibular, pre-/postau ricular, occipital or supraclavicular lymphadenopathy. CHEST: Normal chest expansion. No Telemetry. LUNGS: Absence of any rales, rhonchi or any wheezing. CARDIOVASCULAR: Regular. S1 and S2 normal. No appreciable rubs, murmurs or gallops. ABDOMEN: Soft, nondistended. Mild tenderness to palpation of the suprapubic region : Deferred. No Bess. EXTREMITIES: Non-edematous and not cyanotic. No clubbing. Good capillary refill. SKIN: No skin breakdown. Vital Signs (last 8hr) Date Time Temp Pulse Resp B/P (MAP) Pulse Ox O2 Delivery O2 Flow Rate FiO2 04/22/24 04:00 97.9 80 20 108/67 96 Room Air LABS: Laboratory: Test 04/22/24 05:19 04/22/24 05:10 04/21/24 05:17 04/20/24 12:13 Range/Units Whole Blood Glucose 148 H 70-110 MG/DL White Blood Count 9.8 4.8-10.8 K/uL Red Blood Count 3.97 L 4.50-6.20 MIL/uL Hemoglobin 14.0 14.0-18.0 g/dL Hematocrit 42.2 42-54 % Mean Corpuscular Volume 106.3 H 79-99 fL Mean Corpuscular Hemoglobin 35.3 H 27.0-33.0 pg Mean Corpuscular Hemoglobin Concent 33.2 32.0-36.0 g/dL Red Cell Distribution Width 14.6 11.0-15.5 % Platelet Count 344 130-400 K/uL Mean Platelet Volume 9.0 7.5-10.5 fL Immature Granulocyte % (Auto) 0.4 0-1 % Neutrophils (%) (Auto) 59.7 40.0-77.0 % Lymphocytes (%) (Auto) 20.3 L 21.0-51.0 % Monocytes (%) (Auto) 15.9 H 3.0-13.0 % Eosinophils (%) (Auto) 3.0 0.0-8.0 % Basophils (%) (Auto) 0.7 0.0-5.0 % Neutrophils # (Auto) 5.8 1.8-7.7 K/uL Lymphocytes # (Auto) 2.0 1.0-4.8 K/uL Monocytes # (Auto) 1.6 H 0.1-1.0 K/uL Eosinophils # (Auto) 0.29 0.00-0.70 K/uL Basophils # (Auto) 0.07 0.00-0.20 K/uL Absolute Immature Granulocyte (auto 0.04 0-1 K/uL Nucleated Red Blood Cells 0.0 0.0-0.19 % Sodium Level 140 136-145 mmol/L Potassium Level 4.1 3.5-5.1 mmol/L Chloride Level 105 101-111 mmol/L Carbon Dioxide Level 29 21-32 mmol/L Blood Urea Nitrogen 18 7-18 mg/dL Creatinine 1.0 0.5-1.3 mg/dL Glomerular Filtration Rate Calc 76 >90 mL/min Random Glucose 140 H 70-105 mg/dL Total Calcium 8.9 8.5-10.1 mg/dL Magnesium Level 2.10 1.80-2.40 mg/dL Total Bilirubin 0.7 0.2-1.0 mg/dL Aspartate Amino Transf (AST/SGOT) 23 10-37 U/L Alanine Aminotransferase (ALT/SGPT) 18 # 12-78 U/L Alkaline Phosphatase 146 H 50-136 U/L Total Protein 6.8 6.0-8.3 g/dL Albumin 3.0 L 3.5-5.0 g/dL Vitamin B12 Level 345 193-986 pg/mL Folic Acid (LAB) 13.00 2-20 ng/mL Influenza Type A Antigen Negative For Type A NEGATIVE Influenza Type B Antigen Negative For Type B NEGATIVE SARS-CoV-2, RNA, NAAT NEGATIVE SARS CoV-2 NEGATIVE Test 04/20/24 11:54 04/20/24 10:03 04/20/24 09:48 Range/Units Lactic Acid Level 1.2 0.8-2.5 mmol/L Urine Color BROWN H YELLOW Urine Appearance CLOUDY H CLEAR Urine pH 5.5 5.0-8.0 Urine Specific [place] 1.020 1.001-1.031 Urine Protein 30 H NEGATIVE mg/dL Urine Glucose (UA) >=1000 H NEGATIVE mg/dL Urine Ketones 10 H NEGATIVE mg/dL Urine Occult Blood LARGE H NEGATIVE Urine Nitrate 2+ H NEGATIVE Urine Bilirubin NEGATIVE NEGATIVE mg/dL Urine Urobilinogen 0.2 0.2-1.0 mg/dL Urine Leukocyte Esterase 500 H NEGATIVE Cory/uL Urine RBC TNTC H 0-1 /HPF Urine WBC TNTC H 0-1 /HPF Urine Bacteria MOD None Seen /HPF White Cell Morphology Comment See comments Red Blood Cell Morphology See comments Erythrocyte Sedimentation Rate 15 0-20 MM/HR Prothrombin Time 11.1 9.6-11.6 SEC Prothromb Time International Ratio 1.05 0.85-1.15 Activated Partial Thromboplast Time 31.5 26.3-35.5 SEC Hemoglobin A1c 6.9 H 4.0-6.0 % Estimated Average Glucose (eAG) 151 H 70-126 mg/dL Direct Bilirubin 0.2 0.0-0.3 mg/dL C-Reactive Protein, Quantitative 7.10 H 0.5-3.0 mg/L B-Type Natriuretic Peptide 259 H 0-100 pg/mL Thyroid Stimulating Hormone (TSH) 0.86 # 0.36-3.74 uIU/mL Current Medications Medications (Trade) Dose Ordered Sig/Marysol Route PRN Reason Start Time Stop Time Status Last Admin Dose Admin Acetaminophen (TYLenol 325MG TAB) 650 mg Q6H PRN PO MILD PAIN (1-3) 04/20/24 12:00 05/20/24 11:59 Apixaban (EliquIS) 5 mg BID PO 04/20/24 21:00 05/20/24 20:59 04/22/24 08:32 5 MG Budesonide (Pulmicort 0.5 Mg/2ml) 0.5 mg BIDRESP IH 04/20/24 12:00 05/20/24 11:59 04/22/24 06:33 0.5 MG Docusate Sodium (COLace 100MG CAP) 100 mg BID PO 04/20/24 21:00 05/20/24 20:59 04/21/24 20:37 100 MG Finasteride (PROscar 5 MG TAB) 5 mg HS PO 04/20/24 21:00 05/20/24 20:59 04/21/24 20:37 5 MG Furosemide (LASix 20MG TAB) 20 mg BID PO 04/20/24 21:00 04/21/24 13:01 DC 04/21/24 09:34 20 MG Furosemide (LASix 20MG TAB) 20 mg DAILY@0600,1300 PO 04/22/24 06:00 05/22/24 05:59 Insulin Glargine (LANtus 100 UNITS/ML 10 ML VIAL) 10 units DAILY SQ 04/21/24 09:00 05/21/24 08:59 04/22/24 08:42 10 UNITS Insulin Human Regular (humuLIN R 100 UNIT/ML 3ML) 3 unit TIDAC SQ 04/22/24 07:30 05/22/24 07:29 04/22/24 08:41 3 UNIT Insulin Human Regular (humuLIN R 100 UNIT/ML 3ML) INSULIN SLIDING SCAL... ACHS SQ 04/20/24 16:30 05/20/24 16:29 04/21/24 20:39 3 UNIT Ipratropium Hodge (AtrovENT UD) 0.5 mg Q6H PRN IH SHORTNESS OF BREATH 04/20/24 12:00 05/20/24 11:59 Isosorbide Mononitrate (Imdur 30mg Sr) 15 mg DAILY PO 04/21/24 09:00 05/21/24 08:59 04/22/24 08:33 15 MG Lactulose (Constulose 20gm/ 30ml Udcup) 20 gm BID PO 04/20/24 13:00 04/21/24 19:04 DC 04/20/24 19:51 20 GM Lactulose (Constulose 20gm/ 30ml Udcup) 20 gm BID PRN PO CONSTIPATION 04/21/24 19:30 05/20/24 12:59 Meropenem (Merrem 1gm) 1 gm Q8H IVPB 04/20/24 12:00 04/30/24 11:59 04/22/24 04:36 1 GM Metoprolol Tartrate (loprESSOR) 12.5 mg BID PO 04/20/24 21:00 05/20/24 20:59 04/21/24 20:37 12.5 MG Ondansetron HCl (zoFRAN 4MG INJ) 4 mg Q6H PRN IVP NAUSEA/VOMITING 04/20/24 12:00 05/20/24 11:59 Pantoprazole Sodium (PROTonix 40MG INJ) 40 mg Q24H IVP 04/20/24 12:00 05/20/24 11:59 04/21/24 12:41 40 MG Pharmacy Profile Note (Pharmacy Communication) 1 each ONCE MISC 04/20/24 12:00 04/20/24 12:00 DC Phenazopyridine HCl (PYRIdium HCL 200 MG TAB) 200 mg Q8H PRN PO urinary discomfort 04/20/24 12:00 05/20/24 11:59 Sacubitril/ Valsartan (Entresto 97 Mg-103 Mg Tablet) 1 each DAILY PO 04/21/24 09:00 05/21/24 08:59 04/22/24 08:32 1 EACH Simvastatin (zoCOR) 80 mg HS PO 04/20/24 21:00 05/20/24 20:59 04/21/24 20:34 80 MG Thiamine HCl (Vitamin B-1) 100 mg Q24H IVP 04/20/24 12:00 05/20/24 11:59 04/21/24 12:42 100 MG DIAGNOSTICS / RADIOLOGY: [ ] ASSESSMENT: Complicated urinary tract infection with failure of outpatient antibiotic therapy, POA History of recurrent UTI, POA Mild hyponatremia, POA Underlying history of ischemic cardiomyopathy, POA History of atrial fibrillation maintained on chronic anticoagulation with Eliquis, POA History of splenectomy, POA Constipation, POA History of recurrent severe hypoglycemia maintained on outpatient insulin therapy, POA History of type 2 diabetes mellitus, POA Hypertension, POA Hyperlipidemia, POA Frailty, POA Octogenarian, POA History of iodine/shellfish allergy, POA History of CABG x4 PLAN: Complicated urinary tract infection, history of recurrent UTI Patient has been receiving outpatient treatment with levofloxacin and Ceftin with no improvement of urinary symptoms, urinalysis continues to show nitrite positive, leukocyte esterase positive with pyuria and bacteriuria Continue patient on IV meropenem and deescalate antibiotics in the next 48-72 hours based on culture sensitivity report , we will wait for Infectious Disease recommendations CT abdomen came out negative for any findings urine culture report revealed E coli ESBL History of CABG x4, atrial fibrillation We will continue with patient's outpatient dose of Lasix, metoprolol tartrate, Entresto and Eliquis We will monitor I&Os. Uncontrolled diabetes and hypoglycemic episodes Patient will be started on sliding scale insulin a.c. and HS, patient has been having recurrent severe hypoglycemia with sugars into the 30s and 40s, patient is also on outpatient Eliquis, we will start patient on dose adjusted basal Lantus based on blood glucose trend, we will have Dr. Veliz with endocrinology see this patient We will follow endocrinology recommendations All labs will be repeated in the morning, we will keep patient on telemetry Reports having constipation for 4-5 days now, he has been taking MiraLax at home, we will follow up CT abdomen pelvis and we will start patient on lactulose 20 g twice daily in addition to Colace, we will keep patient on a liquid diet until he has a good bowel movement ATTESTATION BY PHYSICIAN I have seen and examined the patient. I reviewed the documentation, medical decision making, and treatment plan as noted by the resident provider above. I agree with the findings and plan of care. Ulysses Parra MD, KEERTI K MD Apr 22, 2024 09:18
--- NOTE | 2024-04-22 10:29 | HMCSR ---
APPROVED REPORT EXAM: Two-dimensional and M-mode echocardiogram with Doppler and color Doppler. INDICATION ICD: Assess heart failure 2D Dimensions RVDd5.2 cmLVEF(%)16.9 (>50%)LVED Vol(simp.)149.0 mL IVSd0.9 (0.7-1.1cm)FS(%)8 %LVES Vol(simp.)71.0 mL LVDd5.2 (3.8-5.6cm)LA (2D)5.2 (1.6-4.0cm)LVEF(%, simp.)52 % PWd1.6 (0.7-1.1cm)Ao Root(2D)3.5 (2.0-3.7cm)LA ESV INDEX (4CH)42.80 mL/m2 IVSs1.1 cmLVOT diam2.7 (1.8-2.4cm)LA ESV INDEX (2CH)37.10 mL/m2 LVDs4.8 (2.5-4.0cm)IVC diam2.4 cmLA ESV INDEX (BP)40.40 mL/m2 PWs1.3 cm Deformation Strain Apical 4-10.0 % Apical 2-9.0 % Apical 3-15.0 % Global Strain-11.0 % M-Mode Dimensions EPSS1.7 cm LA (MM)5.4 (1.6-4.0cm) Ao Root(MM)3.3 (2.0-3.7cm) Aortic Valve AoV VTI0.2 mAo Mean GR2.0 mmHgLVOT VTI0.13 m MARTIZA (VMAX)3.9 cm2AVA (VTI) 3.9 cm2 Mitral Valve MV E Vmax75.0 cm/sDECEL Wyan127 ms P 1/2 T84 ms MVA (PHT)2.6 cm2 TDI E/E' Medial9.9E/E' Lateral7.2 Medial E' Peak V7.60 cm/sLateral E' Peak V10.40 cm/s Pulmonary Valve PV VTI0.15 mPV Mean GR1 mmHg PI End Nena. Carter 101.8 cm/s Tricuspid Valve TR Vmax2.3 m/s TR Peak GR21.0 mmHg Left Ventricle The left ventricle is normal size. GLS -11% The anterior wall is thin and hypokinetic. There is debby l left ventricular wall thickness. LVEF is 45-50%. The left ventricular diastolic function is normal. Right Ventricle The right ventricle is moderately dilated. The right ventricular systolic function is normal. Atria The left atrium is moderately dilated. The right atrium is severely dilated. Aortic Valve The aortic valve is normal in structure. No aortic regurgitation is present. There is no aortic valvu lar stenosis. Mitral Valve The mitral valve is normal in structure. There is no evidence of significant mitral regurgitation. Th ere is no mitral valve stenosis. Tricuspid Valve The tricuspid valve is normal in structure. There is no tricuspid valve regurgitation noted. Pulmonic Valve The pulmonary valve is normal in structure. There is no pulmonic valvular regurgitation. Great Vessels The aortic root is normal in size. The IVC is dilated and collapses >50% with inspiration. Pericardium There is no pericardial effusion. Other Information Quality : AdequateRhythm : NSR Conclusion LVEF is 45-50%. The anterior wall is thin and hypokinetic. The left ventricular diastolic function is normal. The left atrium is moderately dilated.
[2024-04-22 15:33] LABS: INR 1.03 (0.85-1.15); PROTHROMBIN TIME 10.9 SEC (9.6-11.6)
[2024-04-22 15:34] LABS: PARTIAL THROMBOPLASTIN TIME 31.6 SEC (26.3-35.5)
--- NOTE | 2024-04-22 17:19 | NUR ---
APPOINTMENT WITH [facility] TOMORROW 10 AM INFO/ ADDRESS/ PHONE NUMBER GIVEN TO PATIENT STATES HE WILL DRIVE HIMSELF HOME HIS TURCK IN IN THE PARKING LOT STATES HAS DRIVEN ALL OVER THE [facility] INCLUDING TO [place] UNDERSTANDS HE IS PENDING FOR MID LINE PLACEMENT
--- NOTE | 2024-04-22 22:03 | PN ---
endocrinology progress note Date of Service: Apr 22, 2024 Patient reports having history of type 2 diabetes mellitus and is on outpatient insulin therapy, be takes NovoLog insulin which he takes 25 units twice daily along with Lantus 60 units daily. He gets recurrent episodes of hypoglycemia with sugars into the 30s and 40s about 4-5 times per month. Denies any falls. hyperglycemia is improving but still elevated. hba1c 6.9% REVIEW OF SYSTEMS CONSTITUTIONAL: Denies fevers, chills, or night sweats. No unintentional weight loss reported. NEUROLOGICAL: Denies headache, amaurosis fugax, motor weakness, sensory deficit, vertigo/spinning sensation, gait abnormalities, or tremors. ENT: No hearing loss, otalgia, otorrhea, rhinitis, rhinorrhea, hoarseness, or sore throat. CARDIOVASCULAR: Denies any exertional angina, dyspnea on exertion, orthopnea, paroxysmal nocturnal dyspnea, palpitations, life-threatening arrhythmias, claudication. PULMONARY: Denies any shortness of breath, cough, phlegm/sputum, hemoptysis, pleuritic chest pain. SLEEP: Denies morning headaches, daytime somnolence or napping. Denies difficulty falling asleep, staying asleep, waking from sleep. ENDOCRINOLOGIC: Denies polyuria, polydipsia, polyphagia or heat/cold intolerances. HEMATOLOGIC: Denies thrombophilia/previous clots, or coagulopathy/bleeding disorders. ONCOLOGIC: Denies personal history of malignancy. DERMATOLOGIC: Denies rashes or pruritus. PSYCHIATRIC: Denies any suicidal or homicidal ideation. Denies hallucinations. ADDITIONAL PAST MEDICAL HISTORY: [Atrial fibrillation on chronic anticoagulation with Eliquis, history of ischemic cardiomyopathy, diabetes mellitus [id number], hypertension, hyperlipidemia, history of recurrent urinary tract infections] SOCIAL HISTORY: [Patient was tobacco smoker but quit 21 years ago. Patient currently drinks 2 beers that are 12 ounces each usually 2-3 times a week. Patient states he formerly drank daily.. He denies recreational drug use. He follows the [email or web address]. patient retired from the [employer]. Patient's PCP is Dr. De La Paz SURGICAL HISTORY: [Quadruple bypass surgery, splenectomy, partial pancreatectomy, cholecystectomy Allergies: Patient has allergic reaction to iodine, shellfish derived products Medications: Family will be bringing home medications to be reconciled and updated Coded Allergies: iodine (Unverified Allergy, Unknown, HIVES, 02/27/18) shellfish derived (Unverified Allergy, Unknown, 03/27/19) DIAGNOSTICS / RADIOLOGY: Chest x-ray and CT abdomen pelvis without contrast is pending ASSESSMENT: History of recurrent severe hypoglycemia due to high dose insulin, POA Patient reports having history of type 2 diabetes mellitus and is on outpatient insulin therapy, be takes NovoLog insulin which he takes 25 units twice daily along with Lantus 60 units daily. He gets recurrent episodes of hypoglycemia with sugars into the 30s and 40s about 4-5 times per month. DM-2, HBA1C 6.9% glucose are elevated now. Complicated urinary tract infection with failure of outpatient antibiotic therapy, POA History of recurrent UTI, POA Mild hyponatremia, POA Underlying history of ischemic cardiomyopathy, POA History of atrial fibrillation maintained on chronic anticoagulation with Eliquis, POA History of splenectomy, POA Constipation, POA Denies any falls. hba1c 6.9% PLAN: increase lantus to 15 units daily increase regular insulin to 5 units qac before meals increase low dose ssi to medium dose ssi. monitor glucose q x 6 hourly decrease lantus to 30 units daily and decrease novolog to 10 units tid before meals at discharge. Vitals/Labs Vital Signs Date Time Temp Pulse Resp B/P (MAP) Pulse Ox O2 Delivery O2 Flow Rate FiO2 04/22/24 20:00 97.5 81 20 131/75 96 Room Air 04/22/24 18:31 21 04/22/24 07:50 0 Laboratory Tests 04/22/24 05:10 Medications Current Medications Piperacillin Sod/ Tazobactam Sod 3.375 gm ONCE ONCE IV Last administered on 04/20/24at 11:23; Start 04/20/24 at 11:30; Stop 04/20/24 at 11:31; Status DC Budesonide 0.5 mg BIDRESP IH Last administered on 04/22/24at 18:30; Start 04/20/24 at 12:00; Stop 05/20/24 at 11:59 Ipratropium [place] 0.5 mg Q6H PRN IH; Start 04/20/24 at 12:00; Stop 05/20/24 at 11:59 Pantoprazole Sodium 40 mg Q24H IVP Last administered on 04/22/24at 12:45; Start 04/20/24 at 12:00; Stop 05/20/24 at 11:59 Insulin Human Regular INSULIN SLIDING SCAL... ACHS SQ Last administered on 04/22/24at 21:03; Start 04/20/24 at 16:30; Stop 05/20/24 at 16:29 Acetaminophen 650 mg Q6H PRN PO; Start 04/20/24 at 12:00; Stop 05/20/24 at 11:59 Ondansetron HCl 4 mg Q6H PRN IVP; Start 04/20/24 at 12:00; Stop 05/20/24 at 11:59 Phenazopyridine HCl 200 mg Q8H PRN PO; Start 04/20/24 at 12:00; Stop 05/20/24 at 11:59 Pharmacy Profile Note 1 each [place] [facility] [place] Start 04/20/24 at 12:00; Stop 04/20/24 at 12:00; Status DC Thiamine HCl 100 mg Q24H IVP Last administered on 04/22/24at 12:45; Start 04/20/24 at 12:00; Stop 05/20/24 at 11:59 Apixaban 5 mg BID PO Last administered on 04/22/24at 20:59; Start 04/20/24 at 21:00; Stop 05/20/24 at 20:59 Finasteride 5 mg HS PO Last administered on 04/22/24at 20:59; Start 04/20/24 at 21:00; Stop 05/20/24 at 20:59 Furosemide 20 mg BID PO Last administered on 04/21/24at 09:34; Start 04/20/24 at 21:00; Stop 04/21/24 at 13:01; Status DC Isosorbide Mononitrate 15 mg DAILY PO Last administered on 04/22/24at 08:33; Start 04/21/24 at 09:00; Stop 05/21/24 at 08:59 Metoprolol Tartrate 12.5 mg BID PO Last administered on 04/22/24at 20:59; Start 04/20/24 at 21:00; Stop 05/20/24 at 20:59 Sacubitril/ Valsartan 1 each DAILY PO Last administered on 04/22/24at 08:32; Start 04/21/24 at 09:00; Stop 05/21/24 at 08:59 Simvastatin 80 mg HS PO Last administered on 04/22/24at 20:59; Start 04/20/24 at 21:00; Stop 05/20/24 at 20:59 Docusate Sodium 100 mg BID PO Last administered on 04/22/24at 20:59; Start 04/20/24 at 21:00; Stop 05/20/24 at 20:59 Meropenem 1 gm Q8H IVPB Last administered on 04/22/24at 20:59; Start 04/20/24 at 12:00; Stop 04/30/24 at 11:59 Lactulose 20 gm BID PO Last administered on 04/20/24at 19:51; Start 04/20/24 at 13:00; Stop 04/21/24 at 19:04; Status DC Insulin Glargine 10 units DAILY SQ Last administered on 04/22/24at 08:42; Start 04/21/24 at 09:00; Stop 05/21/24 at 08:59 Furosemide 20 mg DAILY@0600,1300 PO Last administered on 04/22/24at 12:45; Start 04/22/24 at 06:00; Stop 05/22/24 at 05:59 Lactulose 20 gm BID PRN PO; Start 04/21/24 at 19:30; Stop 05/20/24 at 12:59 Insulin Human Regular 3 unit TIDAC SQ Last administered on 04/22/24at 16:36; Start 04/22/24 at 07:30; Stop 05/22/24 at 07:29 GIOVANNI LIEBERMAN MD Apr 22, 2024 22:02
[2024-04-23] VITALS (9 sets, daily range): BP systolic 100–132; BP diastolic 62–88; PULSE 78–95; RESP 16–18; TEMP 97.7–98.2; O2SAT 95–96
[2024-04-23 05:28] LABS: BASOPHILS # (AUTO) 0.07 K/uL (0.00-0.20); BASOPHILS % (AUTO) 0.7 % (0.0-5.0); EOSINOPHILS # (AUTO) 0.23 K/uL (0.00-0.70); EOSINOPHILS % (AUTO) 2.3 % (0.0-8.0); HEMATOCRIT 42.4 % (42-54); IMMATURE GRANULOCYTE ABSOLUTE 0.03 K/uL (0-1); LYMPHOCYTES # (AUTO) 2.2 K/uL (1.0-4.8); LYMPHOCYTES % (AUTO) 21.8 % (21.0-51.0); MEAN CORPUSCULAR HGB CONC 33.5 g/dL (32.0-36.0); MEAN CORPUSCULAR VOLUME 104.4 fL (79-99); MONOCYTES # (AUTO) 1.6 K/uL (0.1-1.0); MONOCYTES % (AUTO) 15.8 % (3.0-13.0); NEUTROPHILS # (AUTO) 5.9 K/uL (1.8-7.7); NEUTROPHILS % (AUTO) 59.1 % (40.0-77.0); PLATELET COUNT (AUTO) 387 K/uL (130-400); RED BLOOD CELL COUNT(AUTO) 4.06 MIL/uL (4.50-6.20); RED CELL DISTRIBUTION WIDTH 14.3 % (11.0-15.5)
[2024-04-23] MEDS: INSULIN humuLIN R 100 UNIT/ML 3ML SQ SCH ×2 (05:33→09:26)
[2024-04-23 05:45] LABS: POTASSIUM 4.3 mmol/L (3.5-5.1)
--- NOTE | 2024-04-23 08:45 | CONS ---
INFECTIOUS DISEASE CONSULTATION DATE OF SERVICE: 04/22/2024 REQUESTING PHYSICIAN: Ruiz Pete MD REASON FOR CONSULTATION: UTI, on antibiotic management. HISTORY OF PRESENT ILLNESS: This is an 79-year-old male with obesity, hypertension, atrial fibrillation, who presented to the hospital with dysuria and urinary frequency. The patient continued with urinary symptoms. These have been treated with levofloxacin and Ceftin. Urinalysis was found to be positive. Another urine culture came back with E. coli, which is resistant to multiple organisms. The patient has been placed on meropenem. No cough. No hemoptysis or pleuritic pain. No rashes or itchiness. No chest pain. No palpitations or orthopnea. PAST MEDICAL HISTORY: * Hypertension. * Dyslipidemia. * UTI. * Atrial fibrillation. * Cardiomyopathy. * Diabetes mellitus. * Obesity. * CHF. PAST SURGICAL HISTORY: * CABG. * Splenectomy. * Partial pancreatectomy. * Cholecystectomy. ALLERGIES: IODINE. CURRENT MEDICATIONS: Reviewed. SOCIAL HISTORY: Lives alone. No alcohol, tobacco or illicit drug use. FAMILY HISTORY: Positive for diabetes mellitus. REVIEW OF SYSTEMS: CONSTITUTIONAL: No fever or chills. No weight loss or night sweats. EYES: No eye pain. No photophobia or diplopia. HENT: No sore throat. No rhinorrhea or earache. NECK: No neck pain or neck swelling. RESPIRATORY: No cough. No hemoptysis or pleuritic pain. CARDIOVASCULAR: No chest pain. No palpitations or orthopnea. GASTROINTESTINAL: Denied nausea, vomiting or abdominal pain. GENITOURINARY: No dysuria, urgency or urinary frequency. CENTRAL NERVOUS SYSTEM: No headache, dizziness or slurred speech. PSYCHIATRY: No depression. No suicidal ideation. MUSCULOSKELETAL: No joint pain or joint swelling. PHYSICAL EXAMINATION: GENERAL: Elderly male, awake. VITAL SIGNS: Temperature 98.4, pulse 79, respiratory rate 18, BP 103/72. EYES: No icterus. Pupils are equal and reactive. HENT: No oral thrush seen. Moist oral mucosa. NECK: Supple. No JVD or thyromegaly. LUNGS: Good air entry. No rales. No rhonchi. CARDIOVASCULAR: S1, S2 regular. No murmur heard. ABDOMEN: Obese, soft, nontender. Bowel sound is present. CENTRAL NERVOUS SYSTEM: Awake, alert, oriented x 3. No focal deficits. SKIN: No rashes. No itchiness. LYMPHATIC: No peripheral lymphadenopathy. BACK: No deformity. No pressure ulcer. MUSCULOSKELETAL: No joint swelling, erythema or tenderness. LABORATORY DATA: Sodium 140, potassium 4.1, BUN 18, creatinine 1.0. WBC 9.8, hemoglobin 14.0, platelet 344. Urine culture grew E. coli (ESBL). Blood culture, no growth for 2 days. RADIOLOGY: CT abdomen and pelvis were done negative. ASSESSMENT: An 79-year-old male presenting with urinary symptoms. CURRENT PROBLEMS: Include: * Urinary tract infection. * Infection with multidrug resistant organism. * Diabetes mellitus. * Atrial fibrillation. * Morbid obesity. * Hypertension. PLAN: * Continue meropenem. * Continue antiarrhythmic agent. * Continue antidiabetic. * Monitor electrolytes. * Continue nutritional support. * Continue antiemetic. * Continue antiarrhythmic agent. * Continue Eliquis. * The patient will be followed up closely. Thank you for allowing me to participate in the care of this patient. TID: [id number] RECEIPT: [id number]
[2024-04-23] MEDS: INSULIN GLARgine 100 UNITS/ML 10 ML VIAL SQ SCH (09:27)
--- NOTE | 2024-04-23 12:35 | DS ---
Discharge Summary Hospital Course Summary: 79-year-old male with underlying history of hypertension, hyperlipidemia, atrial fibrillation maintained on chronic anticoagulation with Eliquis, underlying cardiomyopathy, type 2 diabetes mellitus who presented to the ER for further evaluation of dysuria, urinary urgency, urinary frequency and suprapubic di scomfort ongoing for the past two weeks. Patient was being seen by his PCP in ID Clinic and initially was prescribed levofloxacin for management of UTI. Subsequently, he was started on cefuroxime and patient states that he continues to have significant symptoms. He reports having had about 4-5 episodes of urinary tract infection in last year. Patient reports having subjective fevers, chills, malaise. He has been having rhinorrhea and mild shortness of breath. He does get short of breath with exertional activities. Denies any palpitations or chest pain or chest pressure. Patient is followed by Cardiology as outpatient and denies any significant swelling of the lower extremities. He has been maintained on outpatient Lasix, entresto, as well as metoprolol tartrate and Eliquis. On presentation to the hospital, patient was noted to be afebrile and hemodynamically stable. Labs [place] [address] with macrocytosis with MCV of 106.3, hemoglobin of 14.8, platelet count of 497180. BMP remarkable for sodium of 135, potassium 4.0, chloride of 100, BUN of 22, creatinine of 0.9. Patient reports having history of type 2 diabetes mellitus and is on outpatient insulin therapy, be takes NovoLog 70 30 insulin which he takes 25 units twice daily along with Lantus sometimes. He gets recurrent episodes of hypoglycemia with sugars into the 30s and 40s about 4-5 times per month. Denies any falls. Hospital summary : Patient is started on meropenem and Infectious Disease has been consulted on the case CT scan of the abdomen pelvis is unremarkable. Patient showed improvement in the symptoms and had trended down on the white blood count. Urine culture had revealed E coli with ESBL and Infectious Disease have ordered for a midline and advised to discharge the patient to get outpatient IV antibiotics with meropenem for 10 days. Jardiance will be held on discharge as it is causing recurrent UTIs and recurrent hypoglycemic episodes, should follow up with primary regarding the continuation of it. Patient is hemodynamically stable and labs are unremarkable, and deemed stable for discharge. Bulldozer/Loader/Compactor/Scraper(s): Infectious Disease, Endocrinology Procedure(s): PATIENT: THERESA NGUYEN MR#: [id number] : 1945 SEX: M AGE: 79 LOCATION: [facility] ORDER 1200 STATUS: ADM IN REPORT#: [id number] SERVICE 1158 REASON: assess heart failure, heart clinic to read ORDERING PHYSICIAN: STAS REHMAN MD PROCEDURE: ECHO CMP - ECHO 2-D COMPLETE APPROVED REPORT EXAM: Two-dimensional and M-mode echocardiogram with Doppler and color Doppler. INDICATION ICD: Assess heart failure 2D Dimensions RVDd 5.2 cm LVEF(%) 16.9 (>50%) LVED Vol(simp.) 149.0 mL IVSd 0.9 (0.7-1.1cm) FS(%) 8 % LVES Vol(simp.) 71.0 mL LVDd 5.2 (3.8-5.6cm) LA (2D) 5.2 (1.6-4.0cm) LVEF(%, simp.) 52 % PWd 1.6 (0.7-1.1cm) Ao Root(2D) 3.5 (2.0-3.7cm) LA ESV INDEX (4CH) 42.80 mL/m2 IVSs 1.1 cm LVOT diam 2.7 (1.8-2.4cm) LA ESV INDEX (2CH) 37.10 mL/m2 LVDs 4.8 (2.5-4.0cm) IVC diam 2.4 cm LA ESV INDEX (BP) 40.40 mL/m2 PWs 1.3 cm Deformation Strain Apical 4 -10.0 % Apical 2 -9.0 % Apical 3 -15.0 % Global Strain -11.0 % M-Mode Dimensions EPSS 1.7 cm LA (MM) 5.4 (1.6-4.0cm) Ao Root(MM) 3.3 (2.0-3.7cm) Aortic Valve AoV VTI 0.2 m Ao Mean GR 2.0 mmHg LVOT VTI 0.13 m MARITZA (VMAX) 3.9 cm2 MARITZA (VTI) 3.9 cm2 Mitral Valve MV E Vmax 75.0 cm/s DECEL Time 176 ms P 1/2 T 84 ms MVA (PHT) 2.6 cm2 TDI E/E' Medial 9.9 E/E' Lateral 7.2 Medial E' Peak V 7.60 cm/s Lateral E' Peak V 10.40 cm/s Pulmonary Valve PV VTI 0.15 m PV Mean GR 1 mmHg PI End Nena. Carter 101.8 cm/s Tricuspid Valve TR Vmax 2.3 m/s TR Peak GR 21.0 mmHg Left Ventricle The left ventricle is normal size. GLS -11% The anterior wall is thin and hypokinetic. There is normal left ventricular wall thickness. LVEF is 45-50%. The left ventricular diastolic function is normal. Right Ventricle The right ventricle is moderately dilated. The right ventricular systolic function is normal. Atria The left atrium is moderately dilated. The right atrium is severely dilated. Aortic Valve The aortic valve is normal in structure. No aortic regurgitation is present. There is no aortic valvular stenosis. Mitral Valve The mitral valve is normal in structure. There is no evidence of significant mitral regurgitation. There is no mitral valve stenosis. Tricuspid Valve The tricuspid valve is normal in structure. There is no tricuspid valve regurgitation noted. Pulmonic Valve The pulmonary valve is normal in structure. There is no pulmonic valvular regurgitation. Great Vessels The aortic root is normal in size. The IVC is dilated and collapses >50% with inspiration. Pericardium There is no pericardial effusion. Other Information Quality : Adequate Rhythm : NSR Conclusion LVEF is 45-50%. The anterior wall is thin and hypokinetic. The left ventricular diastolic function is normal. The left atrium is moderately dilated. DICTATED BY: CHRISTINA TOBAR DO DATE: 04/21/24 0908 ELECTRONICALLY SIGNED BY: CHRISTINA TOBAR DO DATE: 04/22/24 1029 PATIENT: THERESA NGUYEN MR#: [id number] : 1945 SEX: M AGE: 79 LOCATION: [facility] ORDER 1139 STATUS: [facility] REPORT#: [id number] SERVICE 1135 REASON: assess for any significant infiltrates, cough, Shortness of breath ORDERING PHYSICIAN: STAS REHMAN MD PROCEDURE: CXR1VW - CHEST 1VW Exam Type: CHEST 1VW Clinical Information: assess for any significant infiltrates, cough, Shortness of breath Comparison: None Findings: There is cardiomegaly and there is status post median sternotomy. The lungs are clear of infiltrates. Impression: Clear lungs. DICTATED BY: GARRICK SELF MD DATE: 04/20/241245 ELECTRONICALLY SIGNED BY: GARRICK SELF MD DATE: 04/20/241248 PATIENT: THERESA NGUYEN MR#: [id number] : 1945 SEX: M AGE: 79 [facility] STATUS: ADM IN REPORT#: [id number] SERVICE 1135 REASON: non resolving UTI x 2 weeks, with suprpubic discomfort, lukeocytosis ORDERING PHYSICIAN: STAS REHMAN MD PROCEDURE: ABD PEL WO - CT ABDOMEN/PELVIS W/O CONTRAST Exam Type: CT ABDOMEN/PELVIS W/O CONTRAST Clinical Information: non resolving UTI x 2 weeks, with suprpubic discomfort, lukeocytosis Comparison: None CT Dose Index (CTDI): 10.20 mGy Dose Length Product (DLP): 530.00 total mGy-cm PROTOCOL: Routine noncontrast helical scanning of the abdomen and pelvis was performed at 5mm collimation. Findings: No evidence of nephro or ureterolithiasis is found. No hydronephrosis or ureteral dilatation is seen. The lung bases are clear. The stomach is unremarkable. It shows no wall thickening. No gross ulceration is seen. It is not overly distended. There are no surrounding inflammatory changes. No wall lesions are identified to suggest cancer. The spleen is unremarkable. It is not enlarged. The pancreas shows normal anatomy. It is not fatty replaced. It shows no lesions. The pancreatic duct is not dilated. The gallbladder is unremarkable. It shows no cholelithiasis. The gallbladder wall is normal in thickness. There is no pericholecystic fluid. The is no acute or chronic inflammation noted. The adrenal glands are unremarkable. There is no enlargement. No lesions are noted. The liver is unremarkable. It shows no focal masses. The appendix is unremarkable. It shows no evidence of inflammation. No appendicolith is seen. The small bowel is unremarkable. There is no evidence of dilatation to suggest obstruction. No evidence of adynamic ileus is seen. There is no small bowel wall thickening to suggest enteritis. The colon is unremarkable. The urinary bladder is unremarkable. There is no wall thickening to suggest tumor or inflammation. There are no intraluminal calculi. There are no diverticula. There is no evidence of chronic bladder outlet obstruction. There is no evidence of urinary bladder distention to suggest urinary retention. The prostate is large. The bony and vascular structures are unremarkable for the patient's age. IMPRESSION: No acute pathology. Chronic changes as noted above. This study was performed using dose reduction techniques to include automated exposure control and/or adjustment of the mA and/or kV according to patient size. DICTATED BY: GARRICK SELF MD DATE: 04/20/24 1236 ELECTRONICALLY SIGNED BY: GARRICK SELF MD DATE: 04/20/24 1240 Assessment/Plan: ASSESSMENT: Complicated urinary tract infection with failure of outpatient antibiotic therapy, POA History of recurrent UTI, POA Mild hyponatremia, POA Underlying history of ischemic cardiomyopathy, POA History of atrial fibrillation maintained on chronic anticoagulation with Eliqui s, POA History of splenectomy, POA Constipation, POA History of recurrent severe hypoglycemia maintained on outpatient insulin therapy, POA History of type 2 diabetes mellitus, POA Hypertension, POA Hyperlipidemia, POA Frailty, POA Octogenarian, POA History of iodine/shellfish allergy, POA History of CABG x4 Discharging with outpatient IV antibiotics Discharge Instructions: For the IV antibiotics follow the exact scheduled for their administration, do not skip any doses Jardiance will be held and should be reviewed due to recurrent episodes of hypoglycemia and urinary tract infections. Keep the PICC line clean, dry, and follow up flushing protocols to prevent infection Report any signs of redness, swelling or discharge at the IV site immediately Continue taking Entresto as prescribed Do not stop or adjust toes without your healthcare providers approval Watch for worsening signs such as burning urination, fever, back pain, or bloody urine and report these immediately Monitor for weight gain, swelling in the legs/ankles, shortness of breath, or fatigue Report any new or worsening symptoms to your primary between Stay hydrated but avoid over drinking fluids to prevent fluid overload Monitor kidney function and potassium levels Follow a low-sodium heart healthy diet to manage heart failure Avoid potassium rich foods like bananas Keep all follow up appointments for IV antibiotic monitoring and heart failure checkups Seek immediate care if you experience the following Severe shortness of breath or chest pain Confusion or dizziness Severe swelling or reduced urine output Follow up with primary in 3-7 days Follow up with Infectious Disease in 1 week Follow up with endocrinology in 1 week Home Medications: Active Scripts Metoprolol Tartrate (Lopressor) 25 Mg Tab, 12.5 MG PO BID for 30 Days, #60 TAB Prov: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 Reported Medications Insulin Aspart (Novolog) 100 Unit/Ml Inj, 25 UNITS SQ TIDHS, ML 04/22/24 Furosemide (Furosemide) 20 Mg Tablet, 20 MG PO BID, TAB 03/15/23 Isosorbide Mononitrate (Isosorbide Mononitrate ER) 30 Mg Tab.er.24h, 15 MG PO DAILY, TAB 03/15/23 Finasteride (Finasteride) 5 Mg Tablet, 5 MG PO HS, TAB 03/15/23 Sacubitril/Valsartan (Entresto 97 mg-103 mg Tablet) 97 Mg-103 Mg Tablet, 1 EACH PO DAILY, TAB 03/15/23 Metformin HCl (Metformin HCl) 1,000 Mg Tablet, 1000 MG PO BID, TAB 03/15/23 Insulin Glargine,Hum.rec.anlog (Lantus) 100 Units/Ml Inj, 60 UNITS SQ HS, ML 09/03/20 Omeprazole (Omeprazole) 20 Mg Capsule.dr, 20 MG PO DAILY, CAP 09/03/20 Simvastatin (Simvastatin) 80 Mg Tablet, 80 MG PO HS, TAB 05/20/20 Apixaban (Eliquis) 5 Mg Tablet, 5 MG PO BID, TAB 05/20/20 Discontinued Reported Medications Empagliflozin (Jardiance) 25 Mg Tablet, 12.5 MG PO DAILY, TAB 03/15/23 Insuln Asp Prt/Insulin Aspart (Novolog Mix 70-30 Flexpen Syrn) 100 Unit/1 Ml Insuln.pen, 25 UNITS SQ TID, SYRINGE 03/21/21 Continued Medications: Apixaban (Eliquis) 5 Mg Tablet 5 MG PO BID, TAB Finasteride (Finasteride) 5 Mg Tablet 5 MG PO HS, TAB Furosemide (Furosemide) 20 Mg Tablet 20 MG PO BID, TAB Insulin Aspart (Novolog) 100 Unit/Ml Inj 25 UNITS SQ TIDHS, ML Insulin Glargine,Hum.rec.anlog (Lantus) 100 Units/Ml Inj 60 UNITS SQ HS, ML Isosorbide Mononitrate (Isosorbide Mononitrate ER) 30 Mg Tab.er.24h 15 MG PO DAILY, TAB Metformin HCl (Metformin HCl) 1,000 Mg Tablet 1000 MG PO BID, TAB Metoprolol Tartrate (Lopressor) 25 Mg Tab 12.5 MG PO BID for 30 Days, #60 TAB Omeprazole (Omeprazole) 20 Mg Capsule.dr 20 MG PO DAILY, CAP Sacubitril/Valsartan (Entresto 97 mg-103 mg Tablet) 97 Mg-103 Mg Tablet 1 EACH PO DAILY, TAB Simvastatin (Simvastatin) 80 Mg Tablet 80 MG PO HS, TAB Discontinued Medications: Empagliflozin (Jardiance) 25 Mg Tablet 12.5 MG PO DAILY, TAB Time spent arranging discharge: 1-30 minutes ATTESTATION BY PHYSICIAN I have seen and examined the patient. I reviewed the documentation, medical decision making, and treatment plan as noted by the resident provider above. I agree with the findings and plan of care. Ulysses Parra MD, KEERTI K MD Apr 23, 2024 12:35
--- NOTE | 2024-04-23 15:06 | PN ---
INFECTIOUS DISEASE PROGRESS NOTE Date of Service: Apr 23, 2024 SUBJECTIVE: Patient was seen and examined at bedside in room 406. Patient is awake, alert and oriented x3. ID was consulted for complicated UTI. The final urine culture results came back positive for ESBL E coli. Patient was referred to [facility] for outpatient IV antibiotics with Meropenem x 10 days and has been approved. No fever, temperature is 97.9. Patient will be discharged to home today after the noon dose of Meropenem. PHYSICAL EXAM EYES: Anicteric. Pupils equal and reactive. HENT: No oral thrush seen, moist Oral mucosa. NECK: Supple, no JVD or thyromegaly. LUNGS: Good air entry. No rales, no rhonchi. CARDIOVASCULAR: S1, S2 regular. No murmur heard. ABDOMEN: Soft, non tender, bowel sounds present, no organomegaly CENTRAL NERVOUS SYSTEM: Awake, alert, oriented x 3. SKIN: No rashes, no swelling. LYMPHATICS: No peripheral lymphadenopathy. MUSCULOSKELETAL: No joint swelling, erythema or tenderness. EXTREMITIES: No cyanosis or clubbing. BACK: No deformity, no pressure ulcer. GENITOURINARY: No dysuria or hematuria. Vital Sign (Last 12 Hours) 04/23/24 04/23/24 04/23/24 04/23/24 04:49 06:10 06:12 08:01 Temp 97.9 98.2 Pulse 78 84 84 89 Resp 16 18 18 18 B/P (MAP) 132/88 127/71 Pulse Ox 96 96 O2 Delivery Room Air N/A Room Air Room Air FiO2 21 04/23/24 11:54 Temp 97.9 Pulse 95 Resp 17 B/P (MAP) 100/65 Pulse Ox 98 O2 Delivery Room Air Intake & Output (last 24hrs) 04/22/24 04/22/24 04/23/24 15:00 23:00 07:00 Intake Total 3600 ml Output Total 400 ml 200 ml Balance 3200 ml -200 ml LABS: Laboratory: Test 04/23/24 14:45 04/23/24 05:24 04/23/24 04:49 04/22/24 15:15 Range/Units Whole Blood Glucose 301 H 70-110 MG/DL Bedside Glucose Comment Protocol Initiated White Blood Count 10.0 4.8-10.8 K/uL Red Blood Count 4.06 L 4.50-6.20 MIL/uL Hemoglobin 14.2 14.0-18.0 g/dL Hematocrit 42.4 42-54 % Mean Corpuscular Volume 104.4 H 79-99 fL Mean Corpuscular Hemoglobin 35.0 H 27.0-33.0 pg Mean Corpuscular Hemoglobin Concent 33.5 32.0-36.0 g/dL Red Cell Distribution Width 14.3 11.0-15.5 % Platelet Count 387 130-400 K/uL Mean Platelet Volume 9.4 7.5-10.5 fL Immature Granulocyte % (Auto) 0.3 0-1 % Neutrophils (%) (Auto) 59.1 40.0-77.0 % Lymphocytes (%) (Auto) 21.8 21.0-51.0 % Monocytes (%) (Auto) 15.8 H 3.0-13.0 % Eosinophils (%) (Auto) 2.3 0.0-8.0 % Basophils (%) (Auto) 0.7 0.0-5.0 % Neutrophils # (Auto) 5.9 1.8-7.7 K/uL Lymphocytes # (Auto) 2.2 1.0-4.8 K/uL Monocytes # (Auto) 1.6 H 0.1-1.0 K/uL Eosinophils # (Auto) 0.23 0.00-0.70 K/uL Basophils # (Auto) 0.07 0.00-0.20 K/uL Absolute Immature Granulocyte (auto 0.03 0-1 K/uL Nucleated Red Blood Cells 0.0 0.0-0.19 % Sodium Level 139 136-145 mmol/L Potassium Level 4.3 3.5-5.1 mmol/L Chloride Level 104 101-111 mmol/L Carbon Dioxide Level 29 21-32 mmol/L Blood Urea Nitrogen 23 H 7-18 mg/dL Creatinine 1.0 0.5-1.3 mg/dL Glomerular Filtration Rate Calc 76 >90 mL/min Random Glucose 123 H 70-105 mg/dL Total Calcium 8.5 8.5-10.1 mg/dL Prothrombin Time 10.9 9.6-11.6 SEC Prothromb Time International Ratio 1.03 0.85-1.15 Activated Partial Thromboplast Time 31.6 26.3-35.5 SEC DIAGNOSTICS / RADIOLOGY: PATIENT: THERESA NGUYEN ACCT: [id number] LOC: [facility] U: [id number] AGE/SX: 79/M ROOM: 406 RE04/20/[address]: STAS REHMAN MD : 1945 BED: 1 DIS: STATUS: ADM IN TLOC: SPEC: [id number] ZACK: 04/20/24 STATUS: COMP REQ: [id number] RECD: 04/21/[address]: ALBERTO BARKER MD SOURCE: [facility] ENTR: 04/21/[address] [facility] DR: JAVIER ORONA MD SPDC: CLEAN CAT ORDERED: AERO ID & SENS - Procedure Result Millie Date-Time AEROBIC ID & SENSITIVITIES Final 04/22/24-0810 MRL EXTENDED SPECTRUM BETA-LACTAMASE ORGANISM IDENTIFIED. CRITICAL RESULT WAS CALLED BY DEBRA CARLSON ON 04/22/24 AT 0808. CRITICAL VALUES WERE READ BACK AND ACKNOWLEDGED BY ALBERTO LOPEZ ( [facility] [place] ) COLONY DESCRIPTION: DAY 1: COLONY COUNT: >100,000 CFU/ML GRAM NEGATIVE RODS IDENTIFICATION AND SENSITIVITY TO FOLLOW COMMENTS(R): ESBL ESCHERICHIA COLI E COLI M.I.C. 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 Diabetes mellitus. Atrial fibrillation, on chronic anticoagulation with Eliquis. PLAN: Patient has been approved to [facility] for outpatient IV antibiotics with Meropenem x 10 days and being discharged. Midline has been placed. This case was reviewed and discussed with my supervising physician and the above assessment and plan was formulated and agreed upon. ATTESTATION BY PHYSICIAN I have seen and examined the patient. I reviewed the documentation, medical decision making, and treatment plan as noted by the mid-level provider above. I agree with the findings and plan of care. JESUSITA DURAN MD, [facility] Apr 23, 2024 15:06
--- NOTE | 2024-04-23 21:24 | PN ---
endocrinology progress note Date of Service: Apr 23, 2024 Patient reports having history of type 2 diabetes mellitus and is on outpatient insulin therapy, be takes NovoLog insulin which he takes 25 units twice daily along with Lantus 60 units daily. He gets recurrent episodes of hypoglycemia with sugars into the 30s and 40s about 4-5 times per month. Denies any falls. hyperglycemia has improved. hba1c 6.9% REVIEW OF SYSTEMS CONSTITUTIONAL: Denies fevers, chills, or night sweats. No unintentional weight loss reported. NEUROLOGICAL: Denies headache, amaurosis fugax, motor weakness, sensory deficit, vertigo/spinning sensation, gait abnormalities, or tremors. ENT: No hearing loss, otalgia, otorrhea, rhinitis, rhinorrhea, hoarseness, or sore throat. CARDIOVASCULAR: Denies any exertional angina, dyspnea on exertion, orthopnea, paroxysmal nocturnal dyspnea, palpitations, life-threatening arrhythmias, claudication. PULMONARY: Denies any shortness of breath, cough, phlegm/sputum, hemoptysis, pleuritic chest pain. SLEEP: Denies morning headaches, daytime somnolence or napping. Denies difficulty falling asleep, staying asleep, waking from sleep. ENDOCRINOLOGIC: Denies polyuria, polydipsia, polyphagia or heat/cold intolerances. HEMATOLOGIC: Denies thrombophilia/previous clots, or coagulopathy/bleeding disorders. ONCOLOGIC: Denies personal history of malignancy. DERMATOLOGIC: Denies rashes or pruritus. PSYCHIATRIC: Denies any suicidal or homicidal ideation. Denies hallucinations. ADDITIONAL PAST MEDICAL HISTORY: [Atrial fibrillation on chronic anticoagulation with Eliquis, history of ischemic cardiomyopathy, diabetes mellitus [id number], hypertension, hyperlipidemia, history of recurrent urinary tract infections] SOCIAL HISTORY: [Patient was tobacco smoker but quit 21 years ago. Patient currently drinks 2 beers that are 12 ounces each usually 2-3 times a week. Patient states he formerly drank daily.. He denies recreational drug use. He follows the [email or web address]. patient retired from the [employer]. Patient's PCP is Dr. De La Paz SURGICAL HISTORY: [Quadruple bypass surgery, splenectomy, partial pancreatectomy, cholecystectomy Allergies: Patient has allergic reaction to iodine, shellfish derived products Medications: Family will be bringing home medications to be reconciled and updated Coded Allergies: iodine (Unverified Allergy, Unknown, HIVES, 02/27/18) shellfish derived (Unverified Allergy, Unknown, 03/27/19) DIAGNOSTICS / RADIOLOGY: Chest x-ray and CT abdomen pelvis without contrast is pending ASSESSMENT: History of recurrent severe hypoglycemia due to high dose insulin, POA improved Patient reports having history of type 2 diabetes mellitus and is on outpatient insulin therapy, be takes NovoLog insulin which he takes 25 units twice daily along with Lantus 60 units daily. He gets recurrent episodes of hypoglycemia with sugars into the 30s and 40s about 4-5 times per month. DM-2, HBA1C 6.9% glucose are improving now. Complicated urinary tract infection with failure of outpatient antibiotic therapy, POA History of recurrent UTI, POA Mild hyponatremia, POA Underlying history of ischemic cardiomyopathy, POA History of atrial fibrillation maintained on chronic anticoagulation with Eliquis, POA History of splenectomy, POA Constipation, POA Denies any falls. hba1c 6.9% PLAN: increase lantus to 20 units daily increase regular insulin to 10 units qac before meals continue medium dose ssi. monitor glucose q x 6 hourly decrease lantus to 30 units daily and decrease novolog to 10 units tid before meals at discharge. Vitals/Labs Vital Signs Date Time Temp Pulse Resp B/P (MAP) Pulse Ox O2 Delivery O2 Flow Rate FiO2 04/23/24 16:00 97.7 78 16 110/62 97 Room Air 04/23/24 07:50 0 21 Laboratory Tests 04/23/24 04:49 Medications Current Medications Piperacillin Sod/ Tazobactam Sod 3.375 gm ONCE ONCE IV Last administered on 04/20/24at 11:23; Start 04/20/24 at 11:30; Stop 04/20/24 at 11:31; Status DC Budesonide 0.5 mg BIDRESP IH Last administered on 04/23/24at 06:10; Start 04/20/24 at 12:00; Stop 04/23/24 at 18:22; Status DC Ipratropium [place] 0.5 mg Q6H PRN IH; Start 04/20/24 at 12:00; Stop 04/23/24 at 18:22; Status DC Pantoprazole Sodium 40 mg Q24H IVP Last administered on 04/23/24at 11:55; Start 04/20/24 at 12:00; Stop 04/23/24 at 18:22; Status DC Insulin Human Regular INSULIN SLIDING SCAL... ACHS SQ Last administered on 04/22/24at 21:03; Start 04/20/24 at 16:30; Stop 04/22/24 at 22:00; Status DC Acetaminophen 650 mg Q6H PRN PO; Start 04/20/24 at 12:00; Stop 04/23/24 at 18:22; Status DC Ondansetron HCl 4 mg Q6H PRN IVP; Start 04/20/24 at 12:00; Stop 04/23/24 at 18:22; Status DC Phenazopyridine HCl 200 mg Q8H PRN PO; Start 04/20/24 at 12:00; Stop 04/23/24 at 18:22; Status DC Pharmacy Profile Note 1 each ONCE [facility] [place] Start 04/20/24 at 12:00; Stop 04/20/24 at 12:00; Status DC Thiamine HCl 100 mg Q24H IVP Last administered on 04/23/24at 11:55; Start 04/20/24 at 12:00; Stop 04/23/24 at 18:22; Status DC Apixaban 5 mg BID PO Last administered on 04/23/24at 09:24; Start 04/20/24 at 21:00; Stop 04/23/24 at 18:22; Status DC Finasteride 5 mg HS PO Last administered on 04/22/24at 20:59; Start 04/20/24 at 21:00; Stop 04/23/24 at 18:22; Status DC Furosemide 20 mg BID PO Last administered on 04/21/24at 09:34; Start 04/20/24 at 21:00; Stop 04/21/24 at 13:01; Status DC Isosorbide Mononitrate 15 mg DAILY PO Last administered on 04/23/24at 09:20; Start 04/21/24 at 09:00; Stop 04/23/24 at 18:22; Status DC Metoprolol Tartrate 12.5 mg BID PO Last administered on 04/23/24at 09:20; Start 04/20/24 at 21:00; Stop 04/23/24 at 18:22; Status DC Sacubitril/ Valsartan 1 each DAILY PO Last administered on 04/23/24at 09:20; Start 04/21/24 at 09:00; Stop 04/23/24 at 18:22; Status DC Simvastatin 80 mg HS PO Last administered on 04/22/24at 20:59; Start 04/20/24 at 21:00; Stop 04/23/24 at 18:22; Status DC Docusate Sodium 100 mg BID PO Last administered on 04/22/24at 20:59; Start 04/20/24 at 21:00; Stop 04/23/24 at 18:22; Status DC Meropenem 1 gm Q8H IVPB Last administered on 04/23/24at 11:55; Start 04/20/24 at 12:00; Stop 04/23/24 at 18:22; Status DC Lactulose 20 gm BID PO Last administered on 04/20/24at 19:51; Start 04/20/24 at 13:00; Stop 04/21/24 at 19:04; Status DC Insulin Glargine 10 units DAILY SQ Last administered on 04/22/24at 08:42; Start 04/21/24 at 09:00; Stop 04/22/24 at 22:00; Status DC Furosemide 20 mg DAILY@0600,1300 PO Last administered on 04/23/24at 06:45; Start 04/22/24 at 06:00; Stop 04/23/24 at 18:22; Status DC Lactulose 20 gm BID PRN PO; Start 04/21/24 at 19:30; Stop 04/23/24 at 18:22; Status DC Insulin Human Regular 3 unit TIDAC SQ Last administered on 04/22/24at 16:36; Start 04/22/24 at 07:30; Stop 04/22/24 at 22:00; Status DC Insulin Glargine 15 units DAILY SQ Last administered on 04/23/24at 09:27; Start 04/23/24 at 09:00; Stop 04/23/24 at 18:22; Status DC Insulin Human Regular 5 unit TIDAC SQ Last administered on 04/23/24at 17:08; Start 04/23/24 at 07:30; Stop 04/23/24 at 18:22; Status DC Insulin Human Regular INSULIN SLIDING SCAL... ACHS SQ Last administered on 04/23/24at 17:09; Start 04/23/24 at 07:30; Stop 04/23/24 at 18:22; Status DC GIOVANNI LIEBERMAN MD Apr 23, 2024 21:24
== END 2024-04-23 18:20 | disposition home or self-care (01) | DRG 690 ==
LOC: EDH 09:23 → EDHIP 11:12 → 4BH 23:05
PROVIDERS: ADMIT Internal Medicine; ATTEND Internal Medicine
PROC: 05HC33Z Insertion of Infusion Device into Left Basilic Vein, Percutaneous Approach (ICD-10-PCS; principal; 2024-04-22)
PROC: B54NZZA Ultrasonography of Left Upper Extremity Veins, Guidance (ICD-10-PCS; 2024-04-22)
DX: N39.0 Urinary tract infection, site not specified (principal); E87.1 Hypo-osmolality and hyponatremia; Z16.24 Resistance to multiple antibiotics; Z20.822 Contact with and (suspected) exposure to COVID-19; I11.0 Hypertensive heart disease with heart failure; I50.9 Heart failure, unspecified; I25.5 Ischemic cardiomyopathy; D75.89 Other specified diseases of blood and blood-forming organs; E66.01 Morbid (severe) obesity due to excess calories; I48.91 Unspecified atrial fibrillation; E78.5 Hyperlipidemia, unspecified; R54 Age-related physical debility; K59.00 Constipation, unspecified; Z79.01 Long term (current) use of anticoagulants; Z79.4 Long term (current) use of insulin; Z87.440 Personal history of urinary (tract) infections; Z90.81 Acquired absence of spleen; Z91.013 Allergy to seafood; Z95.1 Presence of aortocoronary bypass graft; Z83.3 Family history of diabetes mellitus; Z87.891 Personal history of nicotine dependence; Z90.411 Acquired partial absence of pancreas; Z91.041 Radiographic dye allergy status; Z79.899 Other long term (current) drug therapy; Z68.30 Body mass index [BMI] 30.0-30.9, adult
CPT/HCPCS: 36415; 71045; 74176; 80048; 80053; 80076; 81001; 82607; 82746; 82948; 83036; 83605; 83735; 83880; 84443; 85025; 85610; 85651; 85730; 86140; 87040; 87086; 87186; 87635; 87804; 93306; 93356; 94640; 94660; 94664; G0378; J1815; J2185; J2470; J2543; J3411